=== PATIENT | female | born 1955 | race Caucasian/White ===

== ENCOUNTER → 2016-03-27 | Outpatient (CLI) | payer OTHER ==
[~2016-03-27] MED LIST: ATOR40TA PO; BACT800T5 PO; BUTA1CAP PO; CHOL5000 PO; COZA50TA PO; EMPA1TAB3 PO; EZET10 PO; FIORTAB4 PO; FLOV250A INH; FLUTI220I INH; GLIP10TA6 PO; HYDR-3516 PO; IMIT50TA PO; LEVO500T3 PO; LIPI40TA PO; METR-1 PO; NORC5TAB PO; SUMA50; TRAD5TAB PO; TRAM50TA PO; VENTAER INH; ZETI10TA5 PO; ZYRT10CA PO
--- NOTE | 2016-04-03 09:09 | RSPPFT ---
DATE OF PROCEDURE: 03/27/16 COMMENTS: VOLUMES DYNAMIC: FVC and FEV1 normal. STATIC: VTG, RV and TLC normal. FLOWS: FEV1% and FEF 25-75 normal. DIFFUSION: Normal. FLOW VOLUME LOOP: Normal configuration. IMPRESSION: Normal pulmonary function study.
== END ==
LOC: HRSP 08:35
PROVIDERS: ATTEND Internal Medicine
DX: J45.909 Unspecified asthma, uncomplicated (principal)
CPT/HCPCS: 94060; 94620; 94726; 94729; 95012

== ENCOUNTER 2016-04-21 17:42 | Inpatient (IN) | payer OTHER ==
[~2016-04-21] VITALS: Ht 162.6 cm; Wt 84.2 kg
[~2016-04-21 17:42] MED LIST changes: -BACT800T5 PO; -BUTA1CAP PO; -CHOL5000 PO; -FLUTI220I INH; -HYDR-3516 PO; -IMIT50TA PO; -LEVO500T3 PO; -LIPI40TA PO; -METR-1 PO; -NORC5TAB PO; -TRAD5TAB PO; -TRAM50TA PO; -ZETI10TA5 PO; -ZYRT10CA PO
[2016-04-21 17:54] VITALS: BP 132/87; PULSE 78; RESP 16; TEMP 99.2; O2SAT 98
[2016-04-21] MEDS ORDERED: IMIT50TA PO (18:18)
[2016-04-21] MEDS ORDERED: COZA50TA PO (18:18)
[2016-04-21] MEDS ORDERED: ZETI10TA5 PO (18:18)
[2016-04-21] MEDS ORDERED: FLUTI220I INH (18:18)
[2016-04-21] MEDS ORDERED: BUTA1CAP PO (18:18)
[2016-04-21] MEDS ORDERED: GLIP10TA6 PO (18:18)
[2016-04-21] MEDS ORDERED: LIPI40TA PO (18:18)
[2016-04-21] MEDS ORDERED: EMPA1TAB3 PO (18:18)
[2016-04-21] MEDS ORDERED: VENTAER INH (18:18)
[2016-04-21 19:16] VITALS: BP 158/72; PULSE 87; RESP 18; O2SAT 96
[2016-04-21] MEDS ORDERED: SODIUM CHLOR 0.9% 1000 ML INJ 1,000 ML IV SCH (19:20)
[2016-04-21] MEDS ORDERED: SODIUM CHLORIDE 0.9% FLUSH 5 ML FLUSH IVF PRN (19:30)
--- NOTE | 2016-04-21 19:30 | PD ---
HPI Chief Complaint: Weight Analyst Problem/Complaint Time Seen by Provider: 19:01 Travel History International Travel<30 days: No Contact w/Intl Traveler<30days: No Traveled to known affect area: No History of Present Illness HPI The patient is a 61-year-old female, G2, P1, A1 who complains of bilateral lower abdominal pain/cramping without any nausea or vomiting or diarrhea. She had some slight vaginal bleeding today. She does have a history of colon cancer in the past. She denies any blood in the stool or urine. 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 She had a hysterectomy on 2004 but she is not sure what was taken out. She is not absolutely sure that her cervix was taken out but she is fairly sure that both ovaries were removed. This was not done at this hospital. She denies any fever. She does have a history of diabetes which is [id number]. She states she has had annual Pap smears through her prison guard supervisor since her hysterectomy. She is not sexually active. She denies any vaginal trauma. The patient remembers that 8 days ago she had lower quadrant pain and this never really went away. PFSH Past Medical History Arthritis: Yes Cancer: Yes (COLON CANCER) Cardiovascular Problems: No Diabetes: Yes Patient Takes Glucophage: No Diminished Hearing: No Endocrine: No Gastrointestinal Disorders: Yes (COLON CANCER 2010) Glaucoma: No Genitourinary: No Headaches: Yes Hepatitis: No Hiatal Hernia: No Hypertension: Yes Immune Disorder: No Musculoskeletal: No Neurologic: Yes (MIGRANE HEADACHES) Psychiatric: No Reproductive: No Respiratory: Yes (SLEEP APNEA) Immunizations Current: No Migraines: Yes Thyroid Disease: No Tetanus Vaccination: > 5 Years Influenza Vaccination: Yes ?: Not Menopausal: Yes Past Surgical History Abdominal Surgery: Yes (COLON CANCER) AICD: No Cardiac Surgery: No Ear Surgery: No Endocrine Surgery: No Eye Surgery: No Genitourinary Surgery: No Gynecologic Surgery: Yes (hysterectomy 2004 ) Hysterectomy: Yes Joint Replacement: No Oral Surgery: No Pacemaker: No Thoracic Surgery: No Other Surgery: Yes (3 BREAST BX (2 ON LEFT) (ONE ON RIGHT)) Social History Alcohol Use: No Tobacco Use: No Substance Use: No Allergies-Medications (Allergen,Severity, Reaction): Coded Allergies: Metformin (Verified Allergy, Severe, Diarrhea, 04/21/16) Penicillin (Verified Allergy, Intermediate, SWELLING AND HIVES, 04/21/16) Reported Meds & Prescriptions Reported Meds & Active Scripts Active Reported Cozaar (Losartan Potassium) 50 Mg Tab 50 Mg PO DAILY Imitrex (Sumatriptan Succinate) 50 Mg Tab 50 Mg PO ONCE PRN If a satisfactory response has not been obtained at 2 hours, a second dose may be administered Glipizide 10 Mg Tab 10 Mg PO DAILY Take 30 minutes before a meal Flovent Hfa 12 GM Inh (Fluticasone Propionate) 220 Mcg/Act Inh 1 Puff INH BID Use daily at the same time. Fioricet (Zaffncxyoe-Xlyvglcsincml-Fnusfmbg) 50-300-40 Mg Cap 1 Cap PO Q4H PRN Zetia (Ezetimibe) 10 Mg Tab 10 Mg PO DAILY Jardiance (Empagliflozin) 25 Mg Tab 25 Mg PO DAILY Lipitor (Atorvastatin Calcium) 40 Mg Tab 40 Mg PO HS Ventolin Hfa 18 GM Inh (Albuterol Sulfate) 90 Mcg/Act Aer 1 Puff INH Q6HR PRN Review of Systems Except as stated in HPI: all other systems reviewed are Neg Physical Exam Narrative GENERAL: The patient is alert, oriented 3 and slight apparent distress with her bilateral suprapubic pain. Her vital signs show temperature 99.2 but are otherwise normal. SKIN: Warm and dry. HEAD: Atraumatic. Normocephalic. EYES: Pupils equal and round. No scleral icterus. No injection or drainage. ENT: No nasal bleeding or discharge. Mucous membranes pink and moist. NECK: Trachea midline. No JVD. CARDIOVASCULAR: Regular rate and rhythm. No murmur appreciated. RESPIRATORY: No accessory muscle use. Clear to auscultation. Breath sounds equal bilaterally. GASTROINTESTINAL: Abdomen soft, with tenderness to direct palpation in the bilateral suprapubic area, nondistended. Hepatic and splenic margins not palpable. No guarding or rebound is present. MUSCULOSKELETAL: No obvious deformities. No clubbing. No cyanosis. No edema. NEUROLOGICAL: Awake and alert. No obvious cranial nerve deficits. Motor grossly within normal limits. Normal speech. PSYCHIATRIC: Appropriate mood and affect; insight and judgment normal. GENITOURINARY: Normal external genitalia without lesions or erythema. Vaginal vault with a tiny amount of blood and a slight watery, foul-smelling drainage. The patient is very tender and it is difficult to visualize the vaginal vault all the way in. It is possible that there may be a cervix there. Bimanual exam also is too tender to adequately palpate for cervix. The uterus is absent. There are no adnexal masses present. The wall of the vault is inflamed and a tiny amount of blood comes from the wall of the vagina. No evidence of trauma is seen. Data Data Last Documented VS Vital Signs Date Time Temp Pulse Resp B/P Pulse Ox O2 Delivery O2 Flow Rate FiO2 04/21/16 20:52 73 18 129/66 96 Room Air 04/21/16 17:54 99.2 Orders Complete Blood Count With Diff (04/21/16 19:20) Comprehensive Metabolic Panel (04/21/16 19:20) Lipase (04/21/16 19:20) Urinalysis - C+S If Indicated (04/21/16 19:20) Ct Abd/Pel W Iv Contrast(Rout) (04/21/16 19:20) Iv Access Insert/Monitor (04/21/16 19:20) Ecg Monitoring (04/21/16 19:20) Oximetry (04/21/16 19:20) Sodium Chlor 0.9% 1000 Ml Inj (Ns 1000 M (04/21/16 19:20) Sodium Chloride 0.9% Flush (Ns Flush) (04/21/16 19:30) Urine Culture (04/21/16 19:40) Iohexol 350 Inj (Omnipaque 350 Inj) (04/21/16 21:10) Admit Order (Ed Use Only) (04/21/16 21:46) Labs Laboratory Tests Test 04/21/16 04/21/16 19:40 19:45 Urine Color YELLOW Urine Turbidity CLEAR Urine pH 5.5 Urine Specific [place] 1.008 Urine Protein NEG mg/dL Urine Glucose (UA) 100 mg/dL Urine Ketones NEG mg/dL Urine Occult Blood SMALL Urine Nitrite NEG Urine Bilirubin NEG Urine Leukocyte Esterase MOD Urine RBC 0-3 /hpf Urine WBC 25-49 /hpf Urine Squamous Epithelial 0-5 /hpf Cells Urine Amorphous Sediment SMALL Urine Bacteria FEW /hpf Urine Mucus OCC /lpf Microscopic Urinalysis Comment CULTURE INDICATED White Blood Count 8.5 TH/MM3 Red Blood Count 4.39 MIL/MM3 Hemoglobin 12.7 GM/DL Hematocrit 37.2 % Mean Corpuscular Volume 84.6 FL Mean Corpuscular Hemoglobin 28.9 PG Mean Corpuscular Hemoglobin 34.2 % Concent Red Cell Distribution Width 11.6 % Platelet Count 218 TH/MM3 Mean Platelet Volume 8.7 FL Neutrophils (%) (Auto) 67.8 % Lymphocytes (%) (Auto) 23.5 % Monocytes (%) (Auto) 6.4 % Eosinophils (%) (Auto) 1.4 % Basophils (%) (Auto) 0.9 % Neutrophils # (Auto) 5.8 TH/MM3 Lymphocytes # (Auto) 2.0 TH/MM3 Monocytes # (Auto) 0.5 TH/MM3 Eosinophils # (Auto) 0.1 TH/MM3 Basophils # (Auto) 0.1 TH/MM3 CBC Comment DIFF FINAL Differential Comment Sodium Level 142 MEQ/L Potassium Level 3.5 MEQ/L Chloride Level 104 MEQ/L Carbon Dioxide Level 30.4 MEQ/L Anion Gap 8 MEQ/L Blood Urea Nitrogen 7 MG/DL Creatinine 0.46 MG/DL Estimat Glomerular Filtration 138 ML/MIN Rate Random Glucose 213 MG/DL Calcium Level 8.8 MG/DL Total Bilirubin 0.2 MG/DL Aspartate Amino Transf 19 U/L (AST/SGOT) Alanine Aminotransferase 44 U/L (ALT/SGPT) Alkaline Phosphatase 108 U/L Total Protein 6.9 GM/DL Albumin 2.9 GM/DL Lipase 162 U/L MDM Medical Decision Making Medical Screen Exam Complete: Yes Emergency Medical Condition: Yes Medical Record Reviewed: Yes Interpretation(s) The CT scan shows what appears to be a ruptured appendicitis with infection of the vaginal cuff. The CBC is normal. The complete metabolic profile shows a glucose of 213 and albumin of 2.9 but is otherwise normal. The lipase is normal. The urine shows 100 glucose, small occult blood, moderate leukocyte esterase, 25-49 white cells with few bacteria and culture is indicated. Differential Diagnosis Vaginitis, colitis, appendicitis, vaginal cuff infection, electrolyte disorder, hypo-/hyperglycemia, anemia, extension of colon cancer, renal insufficiency Narrative Course The patient has a ruptured appendix. This apparently caused a vaginal cuff infection. This explains the foul-smelling watery discharge in the patient's vagina. It also explains the exquisite pain the patient had with a pelvic exam. The vaginal bleeding is from the inflamed vaginal cuff which was seen oozing tiny amounts of blood. Plan: The patient will be admitted to Dr. Marcelo, I will put the patient on Flagyl and Cipro IV. Diagnosis Primary Impression: Ruptured appendix Additional Impression: Vaginal cuff cellulitis Admitting Information Admitting Physician Requests: Admit Alex Delong MD Apr 21, 2016 19:30
[2016-04-21 19:46] VITALS: RESP 18; O2SAT 98
[2016-04-21 19:57] LABS: BLOOD, URINE SMALL (NEG); GLUCOSE,URINE 100 mg/dL (NEG); KETONE, URINE NEG (NEG); NITRITE,URINE NEG (NEG); PH, URINE 5.5 (5.0-8.5)
[2016-04-21 19:57] LABS: AUTOMATED NEUTROPHIL # 5.8 TH/MM3 (1.8-7.7); BASOPHIL # 0.1 TH/MM3 (0-0.2); BASOPHIL % 0.9 % (0.0-2.0); EOSINOPHIL # 0.1 TH/MM3 (0-0.4); EOSINOPHIL % 1.4 % (0.0-4.0); HEMATOCRIT 37.2 % (35.0-46.0); HEMO FLAGS DIFF FINAL; LYMPH % 23.5 % (9.0-44.0); MEAN CELL VOLUME 84.6 FL (80.0-100.0); MEAN CORPUSCULAR HEMOGLOBIN 28.9 PG (27.0-34.0); MEAN CORPUSCULAR HGB CONC 34.2 % (32.0-36.0); MONO % 6.4 % (0.0-8.0); NEUT % 67.8 % (16.0-70.0); PLATELET COUNT 218 TH/MM3 (150-450); RED BLOOD COUNT 4.39 MIL/MM3 (4.00-5.30); RED CELL DISTRIBUTION WIDTH 11.6 % (11.6-17.2); WHITE BLOOD COUNT 8.5 TH/MM3 (4.0-11.0)
[2016-04-21 20:16] LABS: CHLORIDE 104 MEQ/L (98-107); POTASSIUM 3.5 MEQ/L (3.5-5.1); SODIUM (NA) 142 MEQ/L (136-145)
[2016-04-21 20:20] LABS: ANION GAP 8 MEQ/L (5-15); BICARBONATE 30.4 MEQ/L (21.0-32.0); BLOOD UREA NITROGEN 7 MG/DL (7-18)
[2016-04-21 20:23] LABS: ALT (GPT) 44 U/L (10-53); AST (GOT) 19 U/L (15-37); GLOMERULAR FILTRATION RATE 138 ML/MIN (>89)
[2016-04-21 20:24] LABS: TOTAL BILIRUBIN ADULT 0.2 MG/DL (0.2-1.0)
[2016-04-21 20:24] LABS: MUCUS URINE OCC /lpf (OCC); URINE COLOR YELLOW (YELLW/STRAW)
[2016-04-21 20:26] LABS: RBC, URINE 0-3 /hpf (0-3); SQUAMOUS EPITHELIAL CELL URINE 0-5 /hpf (0-5)
[2016-04-21 20:26] LABS: ALKALINE PHOSPHATASE 108 U/L (45-117)
[2016-04-21 20:27] LABS: BACTERIA, URINE FEW /hpf; COMMENT (UR) CULTURE INDICATED; CULTURE IF INDICATED CULTURE INDICATED
[2016-04-21 20:52] VITALS: BP 129/66; PULSE 73; RESP 18; O2SAT 96
[2016-04-21] MEDS ORDERED: IOHEXOL 350 MG/ML 10 ML VIAL (for RAD DIAG) IV ONE (21:10)
[2016-04-21 21:57] VITALS: BP 167/86; PULSE 106; RESP 18; O2SAT 99
--- NOTE | 2016-04-21 22:06 | RADHPO ---
EXAM DATE/TIME: 04/21/2016 20:55 [facility] COMPARISON: No previous studies available for comparison. INDICATIONS: Lower abdominal cramping for 1 week, now with vaginal bleeding/discharge. IV CONTRAST: 90 cc Omnipaque 350 (iohexol) IV ORAL CONTRAST: No oral contrast ingested. RADIATION DOSE: 18.94 CTDIvol (mGy) MEDICAL HISTORY: Hypertension. Diabetes, colon cancer SURGICAL HISTORY: Hysterectomy. Colon resection. ENCOUNTER: Initial ACUITY: 1 week PAIN SCALE: 4/10 LOCATION: Bilateral lower quadrant TECHNIQUE: Volumetric scanning of the abdomen and pelvis was performed. Using automated exposure control and ad justment of the mA and/or kV according to patient size, radiation dose was kept as low as reasonably achievable to obtain optimal diagnostic quality images. FINDINGS: The patient has fluid in the upper vagina. The vagina appears thickened superiorly. There is inflam matory change at the vaginal cuff. The patient is status post hysterectomy. The inflammatory change at the vaginal cuff involves the lower pelvis. Some of this inflammatory change extends to the tip of the cecum. It als o appears that the sigmoid colon abuts this region. The sigmoid colon in this region is somewhat thickened. It is not distended. Diverticula are not clearly seen. There is a mildly prominent lymph node seen in the right lower sonia drant posterior to the cecum measuring 0.8 cm. There is a 1.9 cm hypodense mass seen in the posterior segment of the right lobe of the liver likely representing a cyst. The spleen, pancreas, adrenal glands appear normal. The kidneys appear normal. Patient does appear to have a diverticulum at the third portion of the duodenum. There is a bowel anastomosis suture line s een in the proximal descending colon in the left upper quadrant. There is some minimal calcification seen throug hout the arterial structures. The patient does have a midline hernia seen just above the umbilicus contai yovana a small amount of mesenteric fat. The defect at the anterior abdominal wall is 0.9 cm. The lung bases are clear. There is degenerative change in the lumbar spine. CONCLUSION: 1. Inflammatory change throughout the pelvis involving the vaginal cuff and the base of the cecum an d to a lesser degree the distal sigmoid colon. If the patient still has the appendix then one needs to be concerned this may represent appendicitis that has ruptured as in well-formed appendix is not s een. It is thought that ruptured appendicitis involving the vaginal cuff is the most likely etiology for these findings. The inflammatory change does extend over to abut the sigmoid colon but the sigm oid colon appears much less affected than the tip of the cecum. 2. Midline abdominal hernia containing a small amount of mesenteric fat. 3. Suspected cyst in the right lobe of the liver. 4. Status post colon resection at the proximal descending colon. El Rosales MD on April 21, 2016 at 21:37 Board Certified Radiologist. This report was verified electronically.
[2016-04-21] MEDS ORDERED: CIPROFLOXACIN 400 MG PREMIX 200 ML IV ONE (22:15)
[2016-04-21] MEDS ORDERED: metroNIDAZOLE 500 MG INJ 100 ML IV ONE (22:15)
[2016-04-21 22:58] VITALS: BP 163/82; PULSE 92; RESP 18; O2SAT 97
[2016-04-22] VITALS (8 sets, daily range): BP systolic 122–149; BP diastolic 57–87; PULSE 66–102; RESP 16–20; TEMP 96.5–98.1; O2SAT 94–98
[2016-04-22] MEDS ORDERED: SODIUM CHLOR 0.9% 1000 ML INJ 1,000 ML IV SCH (03:48)
[2016-04-22] MEDS ORDERED: SODIUM CHLORIDE 0.9% FLUSH 5 ML FLUSH IV FLUSH PRN (04:00)
[2016-04-22] MEDS ORDERED: oxyCODONE/ACETAMINOPHEN 5 MG/325 MG TAB PO PRN (04:00)
[2016-04-22] MEDS ORDERED: MORPHINE SULFATE 4 MG/ML INJ IV PRN (04:00)
[2016-04-22 06:47] LABS: AUTOMATED NEUTROPHIL # 3.8 TH/MM3 (1.8-7.7); BASOPHIL # 0.1 TH/MM3 (0-0.2); BASOPHIL % 0.9 % (0.0-2.0); EOSINOPHIL # 0.1 TH/MM3 (0-0.4); EOSINOPHIL % 2.2 % (0.0-4.0); HEMATOCRIT 33.6 % (35.0-46.0); HEMO FLAGS DIFF FINAL; LYMPH % 29.4 % (9.0-44.0); LYMPHOCYTE # 1.9 TH/MM3 (1.0-4.8); MEAN CELL VOLUME 82.7 FL (80.0-100.0); MEAN CORPUSCULAR HEMOGLOBIN 28.3 PG (27.0-34.0); MEAN CORPUSCULAR HGB CONC 34.2 % (32.0-36.0); MONO % 7.5 % (0.0-8.0); PLATELET COUNT 231 TH/MM3 (150-450); RED BLOOD COUNT 4.07 MIL/MM3 (4.00-5.30); RED CELL DISTRIBUTION WIDTH 12.5 % (11.6-17.2); WHITE BLOOD COUNT 6.4 TH/MM3 (4.0-11.0)
[2016-04-22 07:07] LABS: POTASSIUM 3.3 MEQ/L (3.5-5.1)
--- NOTE | 2016-04-22 09:13 | PD.CONS ---
HPI Service [facility] Consult Requested By Ana Reason for Consult medical management Primary Care Physician Liu Morris MD Diagnoses: History of Present Illness patient is a 61 y/o female with history of hypertension, diabetes, dyslipidemia , colon cancer , asthma presented to ER with vaginal bleeding. she says that she had some flu symptoms with headache and lower abdominal pain last week. she had some vaginal bleeding yesterday which made her to come to ER. she's complaining of lower abdominal pain. she had some nausea yesterday but no emesis. she denies fever, chills or urinary complaints. the last BM was two days ago. Review of Systems Constitutional: DENIES: Fever, Weight loss, Chills, Night Sweats Eyes: DENIES: Blurred vision, Diplopia, Vision loss, Double Vision Ears, nose, mouth, throat: DENIES: Tinnitus, Vertigo, Throat pain, Epistaxis Respiratory: DENIES: Apneas, Cough, Snoring, Wheezing, Hemoptysis, Sputum production, Shortness of breath Cardiovascular: DENIES: Chest pain, Palpitations, Syncope, Dyspnea on Exertion , PND, Lower Extremity Edema, Orthopnea, Claudication Gastrointestinal: COMPLAINS OF: Abdominal pain, Constipation, Nausea, DENIES: Black stools, Bloody stools, Diarrhea, Vomiting, Difficulty Swallowing, Anorexia Genitourinary: COMPLAINS OF: Abnormal vaginal bleeding, DENIES: Urinary frequency, Urgency, Hematuria, Dysuria Musculoskeletal: DENIES: Joint pain, Muscle aches, Stiffness, Joint Swelling Integumentary: DENIES: Rash Neurologic: DENIES: Abnormal gait, Headache, Localized weakness, Paresthesias, Seizures, Speech Problems, Tremor, Poor Balance Psychiatric: DENIES: Anxiety, Confusion, Mood changes, Depression, Hallucinations, Agitation, Suicidal Ideation, Homicidal Ideation, Delusions Past Family Social History Allergies: Coded Allergies: Metformin (Verified Allergy, Severe, Diarrhea, 04/21/16) Penicillin (Verified Allergy, Intermediate, SWELLING AND HIVES, 04/21/16) Past Medical History hypertension diabetes mellitus dyslipidemia colon cancer asthma Past Surgical History hemicolectomy hysterectomy breast biopsy Reported Medications Cozaar (Losartan Potassium) 50 Mg Tab 50 Mg PO DAILY Imitrex (Sumatriptan Succinate) 50 Mg Tab 50 Mg PO ONCE PRN If a satisfactory response has not been obtained at 2 hours, a second dose may be administered Glipizide 10 Mg Tab 10 Mg PO DAILY Take 30 minutes before a meal Flovent Hfa 12 GM Inh (Fluticasone Propionate) 220 Mcg/Act Inh 1 Puff INH BID Use daily at the same time. Fioricet (Kbkfcswjbi-Jgpaxpqhrvvum-Attqailn) 50-300-40 Mg Cap 1 Cap PO Q4H PRN Zetia (Ezetimibe) 10 Mg Tab 10 Mg PO DAILY Jardiance (Empagliflozin) 25 Mg Tab 25 Mg PO DAILY Lipitor (Atorvastatin Calcium) 40 Mg Tab 40 Mg PO HS Ventolin Hfa 18 GM Inh (Albuterol Sulfate) 90 Mcg/Act Aer 1 Puff INH Q6HR PRN Active Ordered Medications Current Medications Sodium Chloride (NS 1000 ml Inj) 1,000 ml @ 1,000 mls/hr Q1H IV Last administered on 04/21/16 19:58; Start 04/21/16 at 19:20; Stop 04/21/16 at 20:19 ; Status DC IV Flush (NS Flush) 2 ml UNSCH PRN IVF FLUSH AFTER USING IV ACCESS Last administered on 04/21/16 19:59; Start 04/21/16 at 19:30; Stop 04/22/16 at 03:57 ; Status DC Iohexol 90 ml 90 ml STK-MED ONCE IV Last administered on 04/21/16 21:10; Start 04/21/16 at 21:10; Stop 04/21/16 at 21:11; Status DC Metronidazole 100 ml @ 100 mls/hr ONCE ONCE IV Last administered on 23:09; Start 04/21/16 at 22:15; Stop 04/21/16 at 23:14; Status DC Ciprofloxacin/ Dextrose 200 ml @ 200 mls/hr ONCE ONCE IV Last administered on 04/21/16 22:10; Start 04/21/16 at 22:15; Stop 04/21/16 at 23:14; Status DC Sodium Chloride (NS 1000 ml Inj) 1,000 ml @ 125 mls/hr Q8H IV Last administered on 04/22/16 04:36; Start 04/22/16 at 03:48 IV Flush (NS Flush) 2 ml BID IV FLUSH ; Start 04/22/16 at 09:00 IV Flush 2 ml 2 ml UNSCH PRN IV FLUSH FLUSH AFTER USING IV ACCESS; Start at 04:00 Metronidazole 100 ml @ 100 mls/hr Q8H IV ; Start 04/22/16 at 08:00 Levofloxacin/ Dextrose (Levaquin 500 Mg Premix Inj) 100 ml @ 100 mls/hr Q24H IV ; Start 04/22/16 at 09:00 Pantoprazole Sodium (Protonix Inj) 40 mg DAILY IV ; Start 04/22/16 at 09:00 Oxycodone/ Acetaminophen (Percocet 5-325 Mg) 1 tab Q4H PRN PO PAIN SCALE 1 TO 5; Start 04/22/16 at 04:00 Morphine Sulfate (Morphine Inj) 3 mg Q4H PRN IV Pain 6-10;if unable to take PO ; Start 04/22/16 at 04:00 Family History parkinson's disease in father. Social History no smoking or drinking. Physical Exam Vital Signs Vital Signs Date Time Temp Pulse Resp B/P Pulse Ox O2 Delivery O2 Flow Rate FiO2 04/22/16 08:00 97.3 69 17 122/62 96 04/22/16 04:00 97.4 69 16 122/57 96 04/22/16 02:18 97.4 102 20 149/87 94 04/22/16 01:43 89 18 133/69 97 04/22/16 00:23 79 18 04/22/16 00:23 79 18 146/73 97 Room Air 04/21/16 22:58 92 18 163/82 97 Room Air 04/21/16 21:57 106 18 04/21/16 21:57 106 18 167/86 99 Room Air 04/21/16 20:52 73 18 129/66 96 Room Air 04/21/16 19:46 18 98 Room Air 04/21/16 19:16 87 18 158/72 96 Room Air 04/21/16 19:16 87 18 04/21/16 17:54 99.2 78 16 132/87 98 Physical Exam GENERAL: This is a well-nourished, well-developed patient, in no apparent distress. SKIN: No rashes, ecchymoses or lesions. Cool and dry. HEAD: Atraumatic. Normocephalic. No temporal or scalp tenderness. EYES: Pupils equal round and reactive. Extraocular motions intact. No scleral icterus. No injection or drainage. ENT: Nose without bleeding, purulent drainage or septal hematoma. Throat without erythema, tonsillar hypertrophy or exudate. Uvula midline. Airway patent. NECK: Trachea midline. No JVD or lymphadenopathy. Supple, nontender, no meningeal signs. CARDIOVASCULAR: Regular rate and rhythm without murmurs, gallops, or rubs. RESPIRATORY: Clear to auscultation. Breath sounds equal bilaterally. No wheezes , rales, or rhonchi. GASTROINTESTINAL: Abdomen soft, mild lower abdominal tenderness, nondistended. No hepato-splenomegaly, or palpable masses. No guarding. MUSCULOSKELETAL: Extremities without clubbing, cyanosis, or edema. No joint tenderness, effusion, or edema noted. No calf tenderness. Negative Homans sign bilaterally. NEUROLOGICAL: Awake and alert. Cranial nerves II through XII intact. Motor and sensory grossly within normal limits. Five out of 5 muscle strength in all muscle groups. Normal speech. Laboratory Laboratory Tests Test 04/21/16 04/21/16 04/22/16 19:40 19:45 05:47 Urine Color YELLOW Urine Turbidity CLEAR Urine pH 5.5 Urine Specific [place] 1.008 Urine Protein NEG Urine Glucose (UA) 100 Urine Ketones NEG Urine Occult Blood SMALL Urine Nitrite NEG Urine Bilirubin NEG Urine Leukocyte Esterase MOD Urine RBC 0-3 Urine WBC 25-49 Urine Squamous Epithelial 0-5 Cells Urine Amorphous Sediment SMALL Urine Bacteria FEW Urine Mucus OCC Microscopic Urinalysis Comment CULTURE INDICATED White Blood Count 8.5 6.4 Red Blood Count 4.39 4.07 Hemoglobin 12.7 11.5 Hematocrit 37.2 33.6 Mean Corpuscular Volume 84.6 82.7 Mean Corpuscular Hemoglobin 28.9 28.3 Mean Corpuscular Hemoglobin 34.2 34.2 Concent Red Cell Distribution Width 11.6 12.5 Platelet Count 218 231 Mean Platelet Volume 8.7 8.3 Neutrophils (%) (Auto) 67.8 60.0 Lymphocytes (%) (Auto) 23.5 29.4 Monocytes (%) (Auto) 6.4 7.5 Eosinophils (%) (Auto) 1.4 2.2 Basophils (%) (Auto) 0.9 0.9 Neutrophils # (Auto) 5.8 3.8 Lymphocytes # (Auto) 2.0 1.9 Monocytes # (Auto) 0.5 0.5 Eosinophils # (Auto) 0.1 0.1 Basophils # (Auto) 0.1 0.1 CBC Comment DIFF FINAL DIFF FINAL Differential Comment Sodium Level 142 140 Potassium Level 3.5 3.3 Chloride Level 104 103 Carbon Dioxide Level 30.4 29.0 Anion Gap 8 8 Blood Urea Nitrogen 7 5 Creatinine 0.46 0.40 Estimat Glomerular Filtration 138 162 Rate Random Glucose 213 241 Calcium Level 8.8 8.4 Total Bilirubin 0.2 Aspartate Amino Transf 19 (AST/SGOT) Alanine Aminotransferase 44 (ALT/SGPT) Alkaline Phosphatase 108 Total Protein 6.9 Albumin 2.9 Lipase 162 Date/Time Procedure Status Source Growth 04/21/16 19:40 Urine Culture Received Urine Clean Catch Pending Result Diagram: 04/22/16 0547 04/22/1647 Imaging Last Impressions Abdomen/Pelvis CT 04/21/161919 Signed Impressions: Service Date/Time: Thursday, April 21, 2016 20:55 - CONCLUSION: 1. Inflammatory change throughout the pelvis involving the vaginal cuff and the base of the cecum and to a lesser degree the distal sigmoid colon. If the patient still has the appendix then one needs to be concerned this may represent appendicitis that has ruptured as in well-formed appendix is not seen. It is thought that ruptured appendicitis involving the vaginal cuff is the most likely etiology for these findings. The inflammatory change does extend over to abut the sigmoid colon but the sigmoid colon appears much less affected than the tip of the cecum. 2. Midline abdominal hernia containing a small amount of mesenteric fat. 3. Suspected cyst in the right lobe of the liver. 4. Status post colon resection at the proximal descending colon. El Rosales MD Assessment and Plan Assessment and Plan A/P - possible ruptured appendicitis NPO for now- continue IV fluid and Antibiotics- pain control- surgery managing. -hypertension; hold home meds- vasotec prn -diabetes mellitus; start accu-check with SSI- hold home meds for now -asthma; resume home inhalers -hypokalemia; will replace -DVT prophylaxis with SCD's thank you for the consult. Discussed Condition With the patient. Biju De León MD Apr 22, 2016 09:13
[2016-04-22] MEDS ORDERED: ALBUTEROL SULFATE 90 MCG/ACT HFA 8 GM INHALER INH PRN (09:15)
[2016-04-22] MEDS ORDERED: GLUCAGON 1 MG/ML VIAL OTHER PRN (09:15)
[2016-04-22] MEDS ORDERED: DEXTROSE 50% IN WATER 50 ML VIAL(D50) IV PUSH PRN (09:15)
[2016-04-22] MEDS ORDERED: ENALAPRILAT 1.25 MG/ML VIAL IV PUSH PRN (09:15)
[2016-04-22] MEDS: INSULIN ASPART SUPPLEMENTAL SCALE SQ SCH ×3 (11:00→19:21)
[2016-04-22] MEDS: LEVOFLOXACIN 500 MG PREMIX INJ 100 ML IV SCH ×2 (11:02→16:22)
[2016-04-22] MEDS: metroNIDAZOLE 500 MG INJ 100 ML IV SCH ×2 (11:02→16:00)
--- NOTE | 2016-04-22 11:59 | MH ---
cc: ANNY SOLIS MD DATE OF ADMISSION: 04/21/2016 CHIEF COMPLAINT Vaginal spotting, perforated appendicitis. HISTORY OF PRESENT ILLNESS The patient is a 61-year-old female who has a history of a hysterectomy in 2004 and an approximately 8-9 day history of mild flu-like symptoms and abdominal pain. She anticipated the symptoms would get better but noted some vaginal spotting and cramping and came to the emergency department for further evaluation. CT scan evaluation showed concern for ruptured appendicitis with small fluid in the lower mid pelvis and very close to the vaginal cuff. The patient does have pain that is currently 3-4/10 and was up to 7/10, improved somewhat with IV pain medications. She states the pain is worse with deep palpation and better when lying still. She denies any associated nausea or vomiting. She did state the pain was mild in the right lower quadrant and now is more central pelvis. She never had any significant pain like this before. PAST MEDICAL HISTORY 1. Asthma. 2. Colon cancer. 3. Diabetes. 4. Dyslipidemia. 5. Hypertension. PAST SURGICAL HISTORY 1. Left hemicolectomy. 2. Hysterectomy. 3. Breast biopsies. MEDICATIONS See EMR. ALLERGIES 1. METFORMIN. 2. PENICILLIN. FAMILY HISTORY Dad with Parkinson's and hypertension. Mom with CAD. SOCIAL HISTORY The patient denies smoking, ETOH or IVDA. REVIEW OF SYSTEMS GENERAL: The patient denies significant fevers. Complains of headache. HEENT: Denies eye pain or ear pain. NECK: Denies swelling or masses. RESPIRATORY: Denies cough or recent wheeze. CARDIOVASCULAR: Denies palpitations or chest pain. GASTROINTESTINAL: Complains of abdominal pain. Denies nausea, vomiting. Complains of some constipation. GENITOURINARY: Complains of vaginal spotting and purulent drainage. Denies dysuria. MUSCULOSKELETAL: Denies edema or cyanosis. NEUROLOGIC: Denies altered mental status or numbness. PSYCHIATRIC: Denies change in mood or judgment. ENDOCRINE: Denies polyuria or polydipsia. PHYSICAL EXAMINATION GENERAL: The patient is in no acute distress, well-developed. VITAL SIGNS: Temperature 97.4, pulse 102, respirations 20, blood pressure 149/87, 94% on room air. HEENT: Pupils equal and reactive. Moist mucous membranes. NECK: Supple. Trachea midline. HEART: S1, S2. No murmur. LUNGS: Bilateral expansion. Clear. ABDOMEN: Soft, obese. Well-healed transverse surgical incision. Mild tenderness to palpation over the pelvic area. No rebound or guarding. EXTREMITIES: Well-perfused, warm. BACK: Nontender. No step-offs. NEUROLOGIC: GCS of 15. 5/5 motor all extremities. LABORATORY/DIAGNOSTIC DATA Sodium 142, potassium 3.5, chloride 104, BUN 7, creatinine 0.46, calcium 8.8, total bilirubin 0.2, AST 19, ALT 44, alk phos 108, lipase 162. UA yellow, clear, nitrite negative, leukocyte esterase moderate. CT reviewed by myself and with radiology showing inflammatory change throughout the pelvis involving the vaginal cuff, base of cecum distal sigmoid. Appendix is therefore ruptured, small amount of appendiceal fluid near the vaginal cuff. Inflammatory changes. Small abdominal hernia. ASSESSMENT The patient is a 61-year-old female with ruptured appendix, deep pelvis, draining through vaginal cuff. PLAN After full clinical and laboratory/diagnostic workup, patient with the above-named issues including perforated appendicitis. At this point discussed with the patient currently we will do nonoperative management, abdominal exams, IV antibiotics, and continue to observe. The patient's abscess is not going to be amenable to IR and also appears to be draining on its own through the vaginal cuff. We will continue to monitor and watch this. We will consult OB-SUPERVISOR IN[employer] PROCESSING for any further recommendations regarding this issue. Further the patient does have history of distant colon cancer status post resection, so at this point we will check some tumor markers just to rule this concern out. The patient will likely benefit from continued evaluation and laboratory studies. We will also likely get a repeat CT scan in several days to assess the diameter of the abscess. This was discussed in detail with the patient at bedside. She stated understanding and agreed and would like to proceed with the current management. MD NADEEM Betancourt/AKI /11:10 AM /11:38 AM
[2016-04-22] MEDS: PANTOPRAZOLE SODIUM 40 MG VIAL IV SCH (16:21)
[2016-04-22] MEDS: NS + KCL 20 MEQ INJ 1,000 ML IV SCH (16:22)
[2016-04-22] MEDS: SODIUM CHLORIDE 0.9% FLUSH 5 ML FLUSH IV FLUSH SCH (19:18)
[2016-04-22] MEDS: FLUTICASONE PROPIONATE 220 MCG/ACT 12 GM INHALER INH SCH (19:19)
[2016-04-23] VITALS: BP 107/59; PULSE 66; RESP 18; TEMP 97.4; O2SAT 96
[2016-04-23] MEDS: NS + KCL 20 MEQ INJ 1,000 ML IV SCH ×5 (00:59→23:21)
[2016-04-23] MEDS: metroNIDAZOLE 500 MG INJ 100 ML IV SCH ×4 (00:59→23:17)
[2016-04-23] MEDS ORDERED: POTASSIUM CHLORIDE INJ 20 MEQ in SODIUM CHLOR 0.9% 1000 ML INJ 1,000 ML IV SCH (03:48)
[2016-04-23] MEDS: INSULIN ASPART SUPPLEMENTAL SCALE SQ SCH ×4 (05:01→21:47)
[2016-04-23 08:00] VITALS: BP 118/58; PULSE 61; RESP 17; TEMP 98.4; O2SAT 95
[2016-04-23] MEDS: PANTOPRAZOLE SODIUM 40 MG VIAL IV SCH (08:15)
[2016-04-23] MEDS: FLUTICASONE PROPIONATE 220 MCG/ACT 12 GM INHALER INH SCH ×2 (08:16→21:42)
[2016-04-23] MEDS: SODIUM CHLORIDE 0.9% FLUSH 5 ML FLUSH IV FLUSH SCH ×2 (08:17→21:00)
--- NOTE | 2016-04-23 09:18 | PD.CONS ---
HPI Travel History International Travel<30 Days: No Contact w/Intl Traveler<30Days: No Known Affected Area: No History of Present Illness HPI CLERICAL PROOFREADER consult requested secondary to vaginal discharge; This patient is a 61-year-old 2 para 1011 she is status post ELO/BSO at the age of 47 for uterine fibroids. Patient is presently admitted with presumed ruptured appendix she states that on she began having discharge with a slimy bloody discharge and some crampy lower abdominal pain she was seen in the [facility] emergency room where she was evaluated and an abdominal CAT scan was done. The conclusion were inflammatory change throughout the pelvis involving the vaginal cuff and the base of the cecum and to a lesser degree the distal sigmoid colon. If the patient still hasn't appendix when needs to be concerned this may represent appendicitis with his ruptured as and well-formed appendix is not seen is thought that ruptured appendicitis involving the vaginal cuff is a most likely etiology for these findings inflammatory change does not extend over to about the sigmoid colon but the sigmoid colon appears much less affected than the tip of the cecum. At this point the patient was sent to [facility] for further evaluation. Patient was admitted and placed on IV fluids and antibiotic Dr. Marcelo Gen. surgery was consulted. Spoke with Dr. Marcelo who wants to limit the inflammatory changes resolved with IV fluids antibiotics over the next 4-6 weeks as the patient has no acute abdomen and it appears as if the appendix has walled itself off. The patient reports having a greenish discharge serosanguineous-type fluid she states that when she had a bowel movement she wiped and she saw stool front and back History Past Medical History Narrative Medical Patient is allergic to penicillin and metformin She has hypertension and elevated cholesterol she is a diabetic History of colon cancer and has had a colectomy Obstetric History Obstetric History 1983 vaginal delivery baby weighed 9 lbs. 10 oz. she states that she did have a vaginal tear but does not know if it was a third or fourth degree VIP 1 Past Surgical History Narrative Surgical Surgery includes ELO/BSO And a left colectomy Family History Narrative Family History Father has Parkinson's and hypertension Mother has heart disease both in their 90s Social History Alcohol Use: No Tobacco Use: No Substance Abuse: No Allergies-Medications (Allergen,Severity, Reaction): Coded Allergies: Metformin (Verified Allergy, Severe, Diarrhea, 04/21/16) Penicillin (Verified Allergy, Intermediate, SWELLING AND HIVES, 04/21/16) Home Meds Reported Medications Losartan (Cozaar)50 Mg Tab50 Mg PO DAILY #30 TAB Ref 0 04/21/16 Sumatriptan (Imitrex)50 Mg Tab50 Mg PO ONCE PRN (MIGRAINE HEADACHE) Ref 0 If a satisfactory response has not been obtained at 2 hours, a second dose may be administered 04/21/16 Glipizide 10 Mg Tab10 Mg PO DAILY #30 TAB Ref 0 Take 30 minutes before a meal 04/21/16 Fluticasone 12 GM Inh (Flovent Hfa 12 GM Inh)220 Mcg/Act Inh1 Puff INH BID #1 INHALER Ref 0 Use daily at the same time. 04/21/16 Nmxiiirgmp-Qqhqrsrtibqbn-Qqjuqobu (Fioricet)50-300-40 Mg Cap1 Cap PO Q4H PRN ( HEADACHE) Ref 0 04/21/16 Ezetimibe (Zetia)10 Mg Tab10 Mg PO DAILY #30 TAB Ref 0 04/21/16 Empagliflozin (Jardiance)25 Mg Tab25 Mg PO DAILY #30 TAB Ref 0 04/21/16 Atorvastatin (Lipitor)40 Mg Tab40 Mg PO HS #30 TAB Ref 0 04/21/16 Albuterol 18 GM Inh (Ventolin Hfa 18 GM Inh)90 Mcg/Act Aer1 Puff INH Q6HR PRN ( SHORTNESS OF BREATH) #1 INHALER Ref 0 04/21/16 Review of Systems General / Constitutional: No: Fever, Weight Gain, Weight Loss, Chills, Other Eyes: No: Diploplia, Blurred Vision, Visual changes, Pain, Photophobia, Other HENT: No: Headaches, Vertigo, Dental Difficulties, Lightheadedness, Other Cardiovascular: No: Irregular Rhythm, Chest Pain or Discomfort, Palpitations, Tachycardia, Syncope, Varicosities, Edema, Cyanosis, Other Respiratory: No: Cough, Short of Breath, Wheezing, Other Gastrointestinal: Abdominal Pain (crampy lower abdominal pain) Genitourinary: Other (greenish discharge slightly bloody) Musculoskeletal: No: Limited ROM, Weakness, Cramping, Edema, Pain, Other Neurologic: No: Weakness, Dizziness, Syncope, Focal Abnormalities, Coordination Problem, Headache, Slurred Speech, Seizures, Other Physical Exam Narrative GENERAL: Well-nourished, well-developed patient. Patient is alert oriented 3 and cooperative in no acute distress ABDOMEN/GI: Abdomen soft, bowel sounds present, no rebound, no guarding mild tenderness in the suprapubic area but no rebound tenderness no masses palpate GENITOURINARY: External Genitalia: intact and normal in appearance and atrophic speculum exam is done upon placing the speculum there is a watery discharge and a small piece of brown stool seen at the vaginal cuff Bimanual exam is done and to the left of the patient it appears to be a slight defect no palpable masses Data Data Vital Signs Reviewed: Yes (temperature is 98.4 blood pressures 118/58 pulse is 61 respiration is 17) Orders Enalaprilat Inj (Vasotec Inj) (04/22/16 09:15) Ns + Kcl 20 Meq Inj (Ns + Kcl 20 Meq Inj (04/22/16 09:30) Consult Vascular Access Team (04/22/16 ) Consult Gynecology (04/22/16 ) Vascular Poc Ultrasound (04/22/16 ) Carcinoembryonic Antigen (Cea) (04/22/16 10:25) Ca 19-9 (04/22/16 10:25) (Hub Use Only)Inp Phy Cons/Ref (04/22/16 ) Diet Clear Liquid (04/22/16 Breakfast) Labs Hemoglobin is 11.5 hematocrit 33.6 white count is 6.4 Laboratory Tests Test 04/22/16 11:36 Carcinoembryonic Antigen 2.6 CA 19-9 Antigen 212.5 Date/Time Procedure Status Source Growth 04/21/16 19:40 Urine Culture - Preliminary Resulted Urine Clean Catch NO GROWTH IN 24 HOURS. [facility] Medical Record Reviewed: Yes Interpretation(s) 61-year-old menopausal female status post ELO/BSO at the age of 47 for fibroid uterus Presumed ruptured appendix that his walled off Based on the physical examination a fistula at the top of the vaginal cuff most likely involving the appendix and the vaginal cuff History of colon cancer with a left colectomy Hypertension Elevated cholesterol Diabetes Plan As per general surgery who wants to wait until the inflammatory changes resolved over the next 4-6 weeks, this patient has an appointment with Dr. Garay on April 30, 2016 If patient is discharged she is to keep that appointment on April [address] Carbiener and I have spoken with Dr. Go and given her the patient's name and date of to expect her visit on 30 April. Possible collaborative surgery with general surgery and CLERICAL PROOFREADER for the repair of the fistula and removal of the appendix. Vaginal culture done Wet prep done Both are pending Patient is requesting to be seen by her colorectal --Dr. Felicia Batista we' ll submit a consult Admitting diagnosis: ruptured appendicitis Jesica Swenson MD Apr 23, 2016 09:18
--- NOTE | 2016-04-23 09:56 | HHI.PR ---
Subjective Remarks in no acute distress. mild abdominal cramps. no nausea or vomiting. afebrile. Objective Vitals Vital Signs Date Time Temp Pulse Resp B/P Pulse Ox O2 Delivery O2 Flow Rate FiO2 04/23/16 08:00 98.4 61 17 118/58 95 04/23/16 00:00 97.4 66 18 107/59 96 04/22/16 20:00 97.6 70 16 135/64 98 04/22/16 16:00 98.1 69 17 125/61 97 04/22/16 12:00 96.5 66 17 138/66 96 I/O 04/22/16 04/22/16 04/22/16 04/23/16 04/23/16 04/23/16 07:00 15:00 23:00 07:00 15:00 23:00 Intake Total 434 ml 200 ml 706 ml 1401 ml Output Total 1000 ml Balance 434 ml 200 ml -294 ml 1401 ml Intake Oral 200 ml 180 ml 240 ml IV Total 434 ml 526 ml 1161 ml Output Urine Total 1000 ml # Voids 3 2 2 # Bowel Movements 0 0 1 0 # Sanitary Pads 1 Pads 1 Pads Result Diagram: 04/22/16 0547 04/22/16 0547 Imaging Last Impressions Abdomen/Pelvis CT 04/21/16 192 Signed Impressions: Service Date/Time: Thursday, April 21, 2016 20:55 - CONCLUSION: 1. Inflammatory change throughout the pelvis involving the vaginal cuff and the base of the cecum and to a lesser degree the distal sigmoid colon. If the patient still has the appendix then one needs to be concerned this may represent appendicitis that has ruptured as in well-formed appendix is not seen. It is thought that ruptured appendicitis involving the vaginal cuff is the most likely etiology for these findings. The inflammatory change does extend over to abut the sigmoid colon but the sigmoid colon appears much less affected than the tip of the cecum. 2. Midline abdominal hernia containing a small amount of mesenteric fat. 3. Suspected cyst in the right lobe of the liver. 4. Status post colon resection at the proximal descending colon. El Rosales MD Objective Remarks GENERAL: This is a well-nourished, well-developed patient, in no apparent distress. CARDIOVASCULAR: Regular rate and regular rhythm without murmurs, gallops, or rubs. RESPIRATORY: Clear to auscultation. Breath sounds equal bilaterally. No wheezes , rales, or rhonchi. GASTROINTESTINAL: Abdomen soft, non-tender, nondistended. Normal, active bowel sounds MUSCULOSKELETAL: Extremities without clubbing, cyanosis, or edema. NEURO: Alert & Oriented x4 to person, place, time, situation. Moves all ext x4 Procedures none Medications and IVs Current Medications Sodium Chloride (NS 1000 ml Inj) 1,000 ml @ 1,000 mls/hr Q1H IV Last administered on 04/21/16 19:58; Start 04/21/16 at 19:20; Stop 04/21/16 at 20:19 ; Status DC IV Flush (NS Flush) 2 ml UNSCH PRN IVF FLUSH AFTER USING IV ACCESS Last administered on 04/21/16 19:59; Start 04/21/16 at 19:30; Stop 04/22/16 at 03:57 ; Status DC Iohexol 90 ml 90 ml STK-MED ONCE IV Last administered on 04/21/16 21:10; Start 04/21/16 at 21:10; Stop 04/21/16 at 21:11; Status DC Metronidazole 100 ml @ 100 mls/hr ONCE ONCE IV Last administered on 23:09; Start 04/21/16 at 22:15; Stop 04/21/16 at 23:14; Status DC Ciprofloxacin/ Dextrose 200 ml @ 200 mls/hr ONCE ONCE IV Last administered on 04/21/16 22:10; Start 04/21/16 at 22:15; Stop 04/21/16 at 23:14; Status DC Sodium Chloride (NS 1000 ml Inj) 1,000 ml @ 125 mls/hr Q8H IV Last administered on 04/22/16 04:36; Start 04/22/16 at 03:48; Stop 04/22/16 at 09:09; Status DC IV Flush (NS Flush) 2 ml BID IV FLUSH Last administered on 04/23/16 08:17; Start 04/22/16 at 09:00 IV Flush 2 ml 2 ml UNSCH PRN IV FLUSH FLUSH AFTER USING IV ACCESS; Start at 04:00 Metronidazole 100 ml @ 100 mls/hr Q8H IV Last administered on 04/23/16 08:17; Start 04/22/16 at 08:00 Levofloxacin/ Dextrose (Levaquin 500 Mg Premix Inj) 100 ml @ 100 mls/hr Q24H IV Last administered on 04/22/16 16:22; Start 04/22/16 at 09:00 Pantoprazole Sodium (Protonix Inj) 40 mg DAILY IV Last administered on 08:15; Start 04/22/16 at 09:00 Oxycodone/ Acetaminophen (Percocet 5-325 Mg) 1 tab Q4H PRN PO PAIN SCALE 1 TO 5 Last administered on 04/22/16 09:37; Start 04/22/16 at 04:00 Morphine Sulfate (Morphine Inj) 3 mg Q4H PRN IV Pain 6-10;if unable to take PO ; Start 04/22/16 at 04:00 Albuterol Sulfate (Proair Hfa Inh) 1 puff Q6HR PRN INH SHORTNESS OF BREATH; Start 04/22/16 at 09:15 Fluticasone Propionate 1 puff 1 puff BID INH Last administered on 04/23/16 08: 16; Start 04/22/16 at 21:00 Potassium Chloride/Sodium Chloride (KCl Inj/NS 1000 ml Inj) 1,010 ml @ 125 mls/ hr Q8H5M IV ; Start 04/23/16 at 03:48; Stop 04/23/16 at 03:48; Status DC Dextrose (D50w (Vial) Inj) 25 ml UNSCH PRN IV PUSH HYPOGLYCEMIA-SEE COMMENTS; Start 04/22/16 at 09:15 Glucagon (Glucagon Inj) 1 mg UNSCH PRN OTHER HYPOGLYCEMIA-SEE COMMENTS; Start 04/22/16 at 09:15 Insulin Aspart (NovoLOG SUPPLEMENTAL SCALE) 1 ACHS SLIDING SCALE SQ Last administered on 04/23/16 05:01; Start 04/22/16 at 11:00 Enalaprilat 1.25 mg 1.25 mg Q8H PRN IV PUSH SBP> OR = 180, DBP> OR = 100; Start 04/22/16 at 09:15 Potassium Chloride/Sodium Chloride (NS + KCl 20 Meq Inj) 1,000 ml @ 125 mls/hr Q8H IV Last administered on 04/23/16 08:17; Start 04/22/16 at 09:30 A/P Assessment and Plan - ruptured appendicitis on liquid diet- continue Antibiotics- pain control- surgery managing. STANDARDS ANALYST consulted. -hypertension; hold home meds for now- vasotec prn -diabetes mellitus; accu-check with SSI- hold home meds for now -asthma; resumed home inhalers -hypokalemia; replaced -DVT prophylaxis with SCD's Biju De León MD Apr 23, 2016 09:55
[2016-04-23 12:00] VITALS: BP 140/67; PULSE 67; RESP 17; TEMP 98.1; O2SAT 96
--- NOTE | 2016-04-23 13:16 | HHI.PR ---
Subjective Subjective Notes fells better, no fevers, normal wbc, tolerating liquids Objective Vitals/I&O Vital Signs Date Time Temp Pulse Resp B/P Pulse Ox O2 Delivery O2 Flow Rate FiO2 04/23/16 12:00 98.1 67 17 140/67 96 04/22/16 00:23 Room Air Labs Laboratory Tests Test 04/23/16 08:00 Clue Cells (Wet Prep) NONE SEEN Vaginal Trichomonas (Wet Prep) NONE SEEN Vaginal Yeast (Wet Prep) NONE SEEN Date/Time Procedure Status Source Growth 04/23/16 08:00 Gram Stain Received Wound Other Pending 04/23/16 08:00 Wound Culture Received Wound Other Pending 04/21/16 19:40 Urine Culture - Final Complete Urine Clean Catch 10-50,000 CFU/ML MIXED HARPAL... Cardiovascular: Regular Lungs: Clear Abdomen: Other (soft, mild ttp deep pelvic, no rebound) Extremities: No edema A/P Assessment and Plan 61-year-old female with ruptured appendix, colo(appendiceal)-vaginal fistula plan abx advance diet discuss with OB pt will likely need surgery in 4-6 weeks pt known to Dr. May- will discuss further care George Marcelo MD Apr 23, 2016 13:16
[2016-04-23 16:00] VITALS: BP 132/67; PULSE 52; RESP 17; TEMP 98.4; O2SAT 97
[2016-04-23 20:00] VITALS: BP 133/66; PULSE 84; RESP 20; TEMP 97.4; O2SAT 97
--- NOTE | 2016-04-23 22:23 | PD.CONS ---
HPI Chief Complaint FECULENT VAGINAL DC Date Seen: Apr 23, 2016 Time Seen: 13:07 Travel History International Travel<30 Days: No Contact w/Intl Traveler<30Days: No Known Affected Area: No History of Present Illness HPI SEE H/P Allergies-Medications (Allergen,Severity, Reaction): Coded Allergies: Metformin (Verified Allergy, Severe, Diarrhea, 04/21/16) Penicillin (Verified Allergy, Intermediate, SWELLING AND HIVES, 04/21/16) Home Meds Reported Medications Losartan (Cozaar)50 Mg Tab50 Mg PO DAILY #30 TAB Ref 0 04/21/16 Sumatriptan (Imitrex)50 Mg Tab50 Mg PO ONCE PRN (MIGRAINE HEADACHE) Ref 0 If a satisfactory response has not been obtained at 2 hours, a second dose may be administered 04/21/16 Glipizide 10 Mg Tab10 Mg PO DAILY #30 TAB Ref 0 Take 30 minutes before a meal 04/21/16 Fluticasone 12 GM Inh (Flovent Hfa 12 GM Inh)220 Mcg/Act Inh1 Puff INH BID #1 INHALER Ref 0 Use daily at the same time. 04/21/16 Gjyrsjerij-Okuwmhlwrivwt-Zpipdgwb (Fioricet)50-300-40 Mg Cap1 Cap PO Q4H PRN ( HEADACHE) Ref 0 04/21/16 Ezetimibe (Zetia)10 Mg Tab10 Mg PO DAILY #30 TAB Ref 0 04/21/16 Empagliflozin (Jardiance)25 Mg Tab25 Mg PO DAILY #30 TAB Ref 0 04/21/16 Atorvastatin (Lipitor)40 Mg Tab40 Mg PO HS #30 TAB Ref 0 04/21/16 Albuterol 18 GM Inh (Ventolin Hfa 18 GM Inh)90 Mcg/Act Aer1 Puff INH Q6HR PRN ( SHORTNESS OF BREATH) #1 INHALER Ref 0 04/21/16 Physical Exam Narrative GENERAL: Well-nourished, well-developed patient. SKIN: Warm and dry. HEAD: Normocephalic and atraumatic. EYES: No scleral icterus. No injection or drainage. ENT: No nasal drainage noted. Mucous membranes pink. Airway patent. NECK: Supple, trachea midline. No JVD. NEUROLOGICAL: Awake and alert. Motor and sensory grossly within normal limits. Five out of 5 muscle strength in all muscle groups. Normal speech. Data Data Orders Wet Prep Profile (04/23/16 09:25) Wound Culture And Gram Stain (04/23/16 09:25) Admit To Inpatient (04/23/16 ) Inpatient Certification (04/23/16 ) Acetaminophen (Tylenol) (04/23/16 10:00) Diet Full Liquid (04/23/16 Lunch) Consult Low Heel Builder Oncology (04/23/16 ) Consult Colorectal Surgery (04/23/16 ) (Hub Use Only)Inp Phy Cons/Ref (04/23/16 ) (Hub Use Only)Inp Phy Cons/Ref (04/23/16 11:47) Labs Laboratory Tests Test 04/23/16 08:00 Clue Cells (Wet Prep) NONE SEEN Vaginal Trichomonas (Wet Prep) NONE SEEN Vaginal Yeast (Wet Prep) NONE SEEN Date/Time Procedure Status Source Growth 04/23/16 08:00 Gram Stain - Final Resulted Wound Other 04/23/16 08:00 Wound Culture Resulted Wound Other Pending 04/21/16 19:40 Urine Culture - Final Complete Urine Clean Catch 10-50,000 CFU/ML MIXED HARPAL... [facility] Medical Record Reviewed: Yes Interpretation(s) PATIENT WITH EITHER RUPTURED APPENDIX DRAINING VIA VAGINA OR COLO-VAGINAL FISTULA AGREE WITH ABX AND POSSIBLE SURGERY 6 WEEKS HENCE REVIEWED SUPERVISOR ASSEMBLY ROOM CONSULT PT HAS MY CONTACT INFORMATION WILL SEE HER IN OFFICE AFTER DC Admitting diagnosis: ruptured appendicitis Bradley Saez MD Apr 23, 2016 22:23 04/23/16 08:00 Wound Culture Resulted Wound Other Pending 04/21/16 19:40 Urine Culture - Final Complete Urine Clean Catch 10-50,000 CFU/ML MIXED HARPAL... [facility] Medical Record Reviewed: Yes Interpretation(s) PATIENT WITH EITHER RUPTURED APPENDIX DRAINING VIA VAGINA OR COLO-VAGINAL FISTULA AGREE WITH ABX AND POSSIBLE SURGERY 6 WEEKS HENCE REVIEWED SUPERVISOR ASSEMBLY ROOM CONSULT PT HAS MY CONTACT INFORMATION WILL SEE HER IN OFFICE AFTER DC Admitting diagnosis: ruptured appendicitis Bradley Saez MD Apr 23, 2016 22:23
[2016-04-23] MEDS: ACETAMINOPHEN 325 MG TAB PO PRN (23:17)
[2016-04-24 00:03] VITALS: BP 137/71; PULSE 79; RESP 20; TEMP 97.7; O2SAT 95
[2016-04-24] MEDS: INSULIN ASPART SUPPLEMENTAL SCALE SQ SCH ×4 (06:31→22:32)
[2016-04-24] MEDS: ACETAMINOPHEN 325 MG TAB PO PRN (06:31)
[2016-04-24 08:00] VITALS: BP 122/57; PULSE 65; RESP 17; TEMP 95.4; O2SAT 95
[2016-04-24] MEDS: NS + KCL 20 MEQ INJ 1,000 ML IV SCH (08:22)
[2016-04-24] MEDS: PANTOPRAZOLE SODIUM 40 MG VIAL IV SCH (08:22)
[2016-04-24] MEDS: metroNIDAZOLE 500 MG INJ 100 ML IV SCH (08:23)
[2016-04-24] MEDS: FLUTICASONE PROPIONATE 220 MCG/ACT 12 GM INHALER INH SCH ×2 (08:25→21:00)
[2016-04-24] MEDS: SODIUM CHLORIDE 0.9% FLUSH 5 ML FLUSH IV FLUSH SCH ×2 (08:25→22:31)
--- NOTE | 2016-04-24 08:42 | HHI.PR ---
Subjective Remarks resting comfortably with no distress. no abdominal pain, nausea or vomiting. no fever. Objective Vitals Vital Signs Date Time Temp Pulse Resp B/P Pulse Ox O2 Delivery O2 Flow Rate FiO2 04/24/16 08:00 95.4 65 17 122/57 95 04/24/16 01:05 16 04/24/16 00:03 97.7 79 20 137/71 95 04/23/16 20:00 97.4 84 20 133/66 97 04/23/16 16:00 98.4 52 17 132/67 97 04/23/16 12:00 98.1 67 17 140/67 96 I/O 04/23/16 04/23/16 04/23/16 04/24/16 04/24/16 04/24/16 07:00 15:00 23:00 07:00 15:00 23:00 Intake Total 1401 ml 1341 ml 1073 ml 1264 ml Output Total 1300 ml 1200 ml 900 ml Balance 1401 ml 41 ml -127 ml 364 ml Intake Oral 240 ml 240 ml 240 ml 240 ml IV Total 1161 ml 1101 ml 833 ml 1024 ml Output Urine Total 1300 ml 1200 ml 900 ml # Voids 2 # Bowel Movements 0 1 1 1 Result Diagram: 04/22/16 0547 04/22/16 0547 Imaging Last Impressions Abdomen/Pelvis CT 04/21/161919 Signed Impressions: Service Date/Time: Thursday, April 21, 2016 20:55 - CONCLUSION: 1. Inflammatory change throughout the pelvis involving the vaginal cuff and the base of the cecum and to a lesser degree the distal sigmoid colon. If the patient still has the appendix then one needs to be concerned this may represent appendicitis that has ruptured as in well-formed appendix is not seen. It is thought that ruptured appendicitis involving the vaginal cuff is the most likely etiology for these findings. The inflammatory change does extend over to abut the sigmoid colon but the sigmoid colon appears much less affected than the tip of the cecum. 2. Midline abdominal hernia containing a small amount of mesenteric fat. 3. Suspected cyst in the right lobe of the liver. 4. Status post colon resection at the proximal descending colon. El Rosales MD Objective Remarks GENERAL: This is a well-nourished, well-developed patient, in no apparent distress. CARDIOVASCULAR: Regular rate and regular rhythm without murmurs, gallops, or rubs. RESPIRATORY: Clear to auscultation. Breath sounds equal bilaterally. No wheezes , rales, or rhonchi. GASTROINTESTINAL: Abdomen soft, non-tender, nondistended. Normal, active bowel sounds MUSCULOSKELETAL: Extremities without clubbing, cyanosis, or edema. NEURO: Alert & Oriented x4 to person, place, time, situation. Moves all ext x4 Procedures none Medications and IVs Current Medications Sodium Chloride (NS 1000 ml Inj) 1,000 ml @ 1,000 mls/hr Q1H IV Last administered on 04/21/16 19:58; Start 04/21/16 at 19:20; Stop 04/21/16 at 20:19 ; Status DC IV Flush (NS Flush) 2 ml UNSCH PRN IVF FLUSH AFTER USING IV ACCESS Last administered on 04/21/16 19:59; Start 04/21/16 at 19:30; Stop 04/22/16 at 03:57 ; Status DC Iohexol 90 ml 90 ml STK-MED ONCE IV Last administered on 04/21/16 21:10; Start 04/21/16 at 21:10; Stop 04/21/16 at 21:11; Status DC Metronidazole 100 ml @ 100 mls/hr ONCE ONCE IV Last administered on 23:09; Start 04/21/16 at 22:15; Stop 04/21/16 at 23:14; Status DC Ciprofloxacin/ Dextrose 200 ml @ 200 mls/hr ONCE ONCE IV Last administered on 04/21/16 22:10; Start 04/21/16 at 22:15; Stop 04/21/16 at 23:14; Status DC Sodium Chloride (NS 1000 ml Inj) 1,000 ml @ 125 mls/hr Q8H IV Last administered on 04/22/16 04:36; Start 04/22/16 at 03:48; Stop 04/22/16 at 09:09; Status DC IV Flush (NS Flush) 2 ml BID IV FLUSH Last administered on 04/23/16 08:17; Start 04/22/16 at 09:00 IV Flush 2 ml 2 ml UNSCH PRN IV FLUSH FLUSH AFTER USING IV ACCESS; Start at 04:00 Metronidazole 100 ml @ 100 mls/hr Q8H IV Last administered on 04/24/16 08:23; Start 04/22/16 at 08:00 Levofloxacin/ Dextrose (Levaquin 500 Mg Premix Inj) 100 ml @ 100 mls/hr Q24H IV Last administered on 04/22/16 16:22; Start 04/22/16 at 09:00 Pantoprazole Sodium (Protonix Inj) 40 mg DAILY IV Last administered on 08:22; Start 04/22/16 at 09:00 Oxycodone/ Acetaminophen (Percocet 5-325 Mg) 1 tab Q4H PRN PO PAIN SCALE 1 TO 5 Last administered on 04/22/16 09:37; Start 04/22/16 at 04:00; Stop 04/23/16 at 09:58; Status DC Morphine Sulfate (Morphine Inj) 3 mg Q4H PRN IV Pain 6-10;if unable to take PO ; Start 04/22/16 at 04:00 Albuterol Sulfate (Proair Hfa Inh) 1 puff Q6HR PRN INH SHORTNESS OF BREATH; Start 04/22/16 at 09:15 Fluticasone Propionate 1 puff 1 puff BID INH Last administered on 04/24/16 08: 25; Start 04/22/16 at 21:00 Potassium Chloride/Sodium Chloride (KCl Inj/NS 1000 ml Inj) 1,010 ml @ 125 mls/ hr Q8H5M IV ; Start 04/23/16 at 03:48; Stop 04/23/16 at 03:48; Status DC Dextrose (D50w (Vial) Inj) 25 ml UNSCH PRN IV PUSH HYPOGLYCEMIA-SEE COMMENTS; Start 04/22/16 at 09:15 Glucagon (Glucagon Inj) 1 mg UNSCH PRN OTHER HYPOGLYCEMIA-SEE COMMENTS; Start 04/22/16 at 09:15 Insulin Aspart (NovoLOG SUPPLEMENTAL SCALE) 1 ACHS SLIDING SCALE SQ Last administered on 04/24/16 06:31; Start 04/22/16 at 11:00 Enalaprilat 1.25 mg 1.25 mg Q8H PRN IV PUSH SBP> OR = 180, DBP> OR = 100; Start 04/22/16 at 09:15 Potassium Chloride/Sodium Chloride (NS + KCl 20 Meq Inj) 1,000 ml @ 125 mls/hr Q8H IV Last administered on 04/24/16 08:22; Start 04/22/16 at 09:30 Acetaminophen (Tylenol) 650 mg Q4H PRN PO FEVER/PAIN 1-5/HEADACHE Last administered on 04/24/16 06:31; Start 04/23/16 at 10:00 A/P Assessment and Plan - ruptured appendicitis on liquid diet- continue Antibiotics- pain control- surgery managing. [employer] consulted. plan for possible surgery in a few weeks. -hypertension; BP controlled- hold home meds for now- vasotec prn -diabetes mellitus; accu-check with SSI- hold home meds for now -asthma; resumed home inhalers -hypokalemia; replaced -DVT prophylaxis with SCD's Discharge Planning when cleared by surgery. Biju De León MD Apr 24, 2016 08:42
[2016-04-24] MEDS: LEVOFLOXACIN 500 MG PREMIX INJ 100 ML IV SCH (09:32)
--- NOTE | 2016-04-24 10:03 | MB ---
cc: SHANTAL PRESCOTT M.D. DATE OF CONSULTATION: 04/24/2016 CHIEF COMPLAINT Colovaginal fistula. HISTORY OF PRESENT ILLNESS The patient is a 61-year-old female who underwent a left colectomy for T1, N0 tumor in 2010. She has done well since that time and her most recent colonoscopy in January of last year, was essentially negative. She began having some flu-like symptoms last week with some lower abdominal pain and cramping. She then had some vaginal spotting and discharge this week, and came to the emergency department. A CT scan showed concern for ruptured appendicitis connected to the vaginal cuff. She has had one or two episodes of small amounts of stool via the vagina. She had no fevers. She had no nausea or vomiting. She denies any dysuria, or hematuria. PAST MEDICAL HISTORY 1. Diabetes 2. Hypertension 3. Chronic obstructive pulmonary disease, asthma. PAST SURGICAL HISTORY 1. Left colectomy 2. Hysterectomy with bilateral salpingo-oophorectomy. 3. Breast biopsies. ALLERGIES 1. METFORMIN 2. PENICILLIN MEDICATIONS See nurse's notes for details. FAMILY HISTORY: Family history is negative for colorectal cancer. SOCIAL HISTORY The patient denies tobacco or alcohol. PHYSICAL EXAMINATION: GENERAL: This is a pleasant female who appears comfortable. NEUROLOGIC: Neuro is grossly intact. SKIN: Skin is warm, dry. CARDIOVASCULAR SYSTEM: Cardiovascular regular rate. CHEST: Breathing is symmetric bilaterally and nonlabored. ABDOMEN: Soft, nondistended. She is mildly tender in the central suprapubic area. There is no guarding or rebound. EXTREMITIES: Reveal no edema. LABORATORY FINDINGS: Laboratory work reveals a white count of 6.4 on the most recent day, which was the first of April. Chemistry has been basically normal. Urinalysis is culture is pending. 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 PLAN I agree with Dr. Marcelo that the most appropriate plan for this patient is IV antibiotics until the inflammation has calmed down, and then interval colectomy down the road - possibly in 8-12 weeks. I will continue to follow with along with her while she is in the hospital if there is any issues. I will see her in the office as an outpatient as she chooses. Thank you very much for your kind referral. MD Trinity Brambila /9:31 AM /9:50 AM MTDJan
[2016-04-24 12:00] VITALS: BP 137/67; PULSE 73; RESP 17; TEMP 97.6; O2SAT 96
[2016-04-24 15:27] LABS: MEAN CELL VOLUME 84.2 FL (80.0-100.0); MEAN CORPUSCULAR HEMOGLOBIN 28.3 PG (27.0-34.0); MEAN CORPUSCULAR HGB CONC 33.6 % (32.0-36.0); PLATELET COUNT 244 TH/MM3 (150-450); RED BLOOD COUNT 4.51 MIL/MM3 (4.00-5.30); RED CELL DISTRIBUTION WIDTH 12.4 % (11.6-17.2); REVIEW FLAG FINAL; WHITE BLOOD COUNT 6.5 TH/MM3 (4.0-11.0)
[2016-04-24 16:00] VITALS: BP 151/70; PULSE 97; RESP 17; TEMP 97.5; O2SAT 97
[2016-04-24 16:08] LABS: BICARBONATE 28.4 MEQ/L (21.0-32.0); POTASSIUM 3.6 MEQ/L (3.5-5.1)
[2016-04-24 20:00] VITALS: BP 136/67; PULSE 84; RESP 21; TEMP 97.7; O2SAT 97
[2016-04-24] MEDS: metroNIDAZOLE 500 MG TAB PO SCH (22:29)
[2016-04-25] VITALS: BP 137/73; PULSE 69; RESP 20; TEMP 97.3; O2SAT 96
[2016-04-25] MEDS: metroNIDAZOLE 500 MG TAB PO SCH ×3 (05:39→21:39)
[2016-04-25] MEDS: INSULIN ASPART SUPPLEMENTAL SCALE SQ SCH ×4 (05:43→21:40)
--- NOTE | 2016-04-25 07:37 | HHI.PR ---
Subjective Subjective Notes no acute issues, tolerating diet, no fevers Objective Vitals/I&O Vital Signs Date Time Temp Pulse Resp B/P Pulse Ox O2 Delivery O2 Flow Rate FiO2 04/25/16 00:00 97.3 69 20 137/73 96 04/22/16 00:23 Room Air Labs Laboratory Tests Test 04/24/16 14:36 White Blood Count 6.5 Red Blood Count 4.51 Hemoglobin 12.8 Hematocrit 38.0 Mean Corpuscular Volume 84.2 Mean Corpuscular Hemoglobin 28.3 Mean Corpuscular Hemoglobin 33.6 Concent Red Cell Distribution Width 12.4 Platelet Count 244 Mean Platelet Volume 8.5 Sodium Level 141 Potassium Level 3.6 Chloride Level 106 Carbon Dioxide Level 28.4 Anion Gap 7 Blood Urea Nitrogen 3 Creatinine 0.49 Estimat Glomerular Filtration 128 Rate Random Glucose 199 Calcium Level 9.0 Date/Time Procedure Status Source Growth 04/23/16 08:00 Gram Stain - Final Resulted Wound Other 04/23/16 08:00 Wound Culture - Preliminary Resulted Gram Negative [facility] D Enterococcus 04/21/16 19:40 Urine Culture - Final Complete Urine Clean Catch 10-50,000 CFU/ML MIXED HARPAL... Cardiovascular: Regular Lungs: Clear Abdomen: Non-distended, Non-tender A/P Assessment and Plan 61-year-old female with ruptured appendix, colo(appendiceal)-vaginal fistula plan abx advance diet discuss with OB pt will likely need surgery in 6-12 weeks pt known to Dr. May- will discuss further care Pt with anxiety will obtain CTa/p to recheck d/c planning George Marcelo MD Apr 25, 2016 07:26
[2016-04-25 08:00] VITALS: BP 117/62; PULSE 68; RESP 17; TEMP 98; O2SAT 95
[2016-04-25] MEDS: LEVOFLOXACIN 500 MG TAB PO SCH (08:33)
[2016-04-25] MEDS: PANTOPRAZOLE SODIUM 40 MG VIAL IV SCH (08:33)
[2016-04-25] MEDS: SODIUM CHLORIDE 0.9% FLUSH 5 ML FLUSH IV FLUSH SCH ×2 (08:33→21:40)
[2016-04-25] MEDS: FLUTICASONE PROPIONATE 220 MCG/ACT 12 GM INHALER INH SCH ×2 (08:34→21:00)
[2016-04-25] MEDS ORDERED: DIATRIZOATE MEGLUM/DIATRIZOATE SOD 9 ML CUP PO ONE (09:00)
--- NOTE | 2016-04-25 10:17 | HHI.PR ---
Subjective Remarks no fever. is comfortable. no abdominal pain, nausea or vomiting. Objective Vitals Vital Signs Date Time Temp Pulse Resp B/P Pulse Ox O2 Delivery O2 Flow Rate FiO2 04/25/16 08:00 98.0 68 17 117/62 95 04/25/16 00:00 97.3 69 20 137/73 96 04/24/16 20:00 97.7 84 21 136/67 97 04/24/16 16:00 97.5 97 17 151/70 97 04/24/16 12:00 97.6 73 17 137/67 96 I/O 04/24/16 04/24/16 04/24/16 04/25/16 04/25/16 04/25/16 07:00 15:00 23:00 07:00 15:00 23:00 Intake Total 1264 ml 1316 ml 240 ml 240 ml Output Total 900 ml Balance 364 ml 1316 ml 240 ml 240 ml Intake Oral 240 ml 240 ml 240 ml 240 ml IV Total 1024 ml 1076 ml 0 ml Output Urine Total 900 ml # Voids 4 2 3 # Bowel Movements 1 0 0 0 Result Diagram: 04/24/16 1436 04/24/16 1436 Imaging Last Impressions Abdomen/Pelvis CT 04/21/16 1920 Signed Impressions: Service Date/Time: Thursday, April 21, 2016 20:55 - CONCLUSION: 1. Inflammatory change throughout the pelvis involving the vaginal cuff and the base of the cecum and to a lesser degree the distal sigmoid colon. If the patient still has the appendix then one needs to be concerned this may represent appendicitis that has ruptured as in well-formed appendix is not seen. It is thought that ruptured appendicitis involving the vaginal cuff is the most likely etiology for these findings. The inflammatory change does extend over to abut the sigmoid colon but the sigmoid colon appears much less affected than the tip of the cecum. 2. Midline abdominal hernia containing a small amount of mesenteric fat. 3. Suspected cyst in the right lobe of the liver. 4. Status post colon resection at the proximal descending colon. El Rosales MD Objective Remarks GENERAL: This is a well-nourished, well-developed patient, in no apparent distress. CARDIOVASCULAR: Regular rate and regular rhythm without murmurs, gallops, or rubs. RESPIRATORY: Clear to auscultation. Breath sounds equal bilaterally. No wheezes , rales, or rhonchi. GASTROINTESTINAL: Abdomen soft, non-tender, nondistended. Normal, active bowel sounds MUSCULOSKELETAL: Extremities without clubbing, cyanosis, or edema. NEURO: Alert & Oriented x4 to person, place, time, situation. Moves all ext x4 Procedures none Medications and IVs Current Medications Sodium Chloride (NS 1000 ml Inj) 1,000 ml @ 1,000 mls/hr Q1H IV Last administered on 04/21/16 19:58; Start 04/21/16 at 19:20; Stop 04/21/16 at 20:19 ; Status DC IV Flush (NS Flush) 2 ml UNSCH PRN IVF FLUSH AFTER USING IV ACCESS Last administered on 04/21/16 19:59; Start 04/21/16 at 19:30; Stop 04/22/16 at 03:57 ; Status DC Iohexol 90 ml 90 ml STK-MED ONCE IV Last administered on 04/21/16 21:10; Start 04/21/16 at 21:10; Stop 04/21/16 at 21:11; Status DC Metronidazole 100 ml @ 100 mls/hr ONCE ONCE IV Last administered on 23:09; Start 04/21/16 at 22:15; Stop 04/21/16 at 23:14; Status DC Ciprofloxacin/ Dextrose 200 ml @ 200 mls/hr ONCE ONCE IV Last administered on 04/21/16 22:10; Start 04/21/16 at 22:15; Stop 04/21/16 at 23:14; Status DC Sodium Chloride (NS 1000 ml Inj) 1,000 ml @ 125 mls/hr Q8H IV Last administered on 04/22/16 04:36; Start 04/22/16 at 03:48; Stop 04/22/16 at 09:09; Status DC IV Flush (NS Flush) 2 ml BID IV FLUSH Last administered on 04/25/16 08:33; Start 04/22/16 at 09:00 IV Flush 2 ml 2 ml UNSCH PRN IV FLUSH FLUSH AFTER USING IV ACCESS; Start at 04:00 Metronidazole 100 ml @ 100 mls/hr Q8H IV Last administered on 04/24/16 08:23; Start 04/22/16 at 08:00; Stop 04/24/16 at 15:01; Status DC Levofloxacin/ Dextrose (Levaquin 500 Mg Premix Inj) 100 ml @ 100 mls/hr Q24H IV Last administered on 04/24/16 09:32; Start 04/22/16 at 09:00; Stop 04/24/16 at 15:01; Status DC Pantoprazole Sodium (Protonix Inj) 40 mg DAILY IV Last administered on 08:33; Start 04/22/16 at 09:00 Oxycodone/ Acetaminophen (Percocet 5-325 Mg) 1 tab Q4H PRN PO PAIN SCALE 1 TO 5 Last administered on 04/22/16 09:37; Start 04/22/16 at 04:00; Stop 04/23/16 at 09:58; Status DC Morphine Sulfate (Morphine Inj) 3 mg Q4H PRN IV Pain 6-10;if unable to take PO ; Start 04/22/16 at 04:00 Albuterol Sulfate (Proair Hfa Inh) 1 puff Q6HR PRN INH SHORTNESS OF BREATH; Start 04/22/16 at 09:15 Fluticasone Propionate 1 puff 1 puff BID INH Last administered on 04/25/16 08: 34; Start 04/22/16 at 21:00 Potassium Chloride/Sodium Chloride (KCl Inj/NS 1000 ml Inj) 1,010 ml @ 125 mls/ hr Q8H5M IV ; Start 04/23/16 at 03:48; Stop 04/23/16 at 03:48; Status DC Dextrose (D50w (Vial) Inj) 25 ml UNSCH PRN IV PUSH HYPOGLYCEMIA-SEE COMMENTS; Start 04/22/16 at 09:15 Glucagon (Glucagon Inj) 1 mg UNSCH PRN OTHER HYPOGLYCEMIA-SEE COMMENTS; Start 04/22/16 at 09:15 Insulin Aspart (NovoLOG SUPPLEMENTAL SCALE) 1 ACHS SLIDING SCALE SQ Last administered on 04/25/16 05:43; Start 04/22/16 at 11:00 Enalaprilat 1.25 mg 1.25 mg Q8H PRN IV PUSH SBP> OR = 180, DBP> OR = 100; Start 04/22/16 at 09:15 Potassium Chloride/Sodium Chloride (NS + KCl 20 Meq Inj) 1,000 ml @ 125 mls/hr Q8H IV Last administered on 04/24/16 08:22; Start 04/22/16 at 09:30; Stop at 14:34; Status DC Acetaminophen (Tylenol) 650 mg Q4H PRN PO FEVER/PAIN 1-5/HEADACHE Last administered on 04/24/16 06:31; Start 04/23/16 at 10:00 Levofloxacin (Levaquin) 500 mg DAILY PO Last administered on 04/25/16 08:33; Start 04/25/16 at 09:00 Metronidazole (Flagyl) 500 mg Q8HR PO Last administered on 04/25/16 05:39; Start 04/24/16 at 22:00 Diatrizoate Meglum/ Diatrizoate Sod ( Gastroview Liq) 18 ml ONCE ONCE PO Last administered on 04/25/16 09:21; Start 04/25/16 at 09:00; Stop 04/25/16 at 09: 01; Status DC A/P Assessment and Plan - ruptured appendicitis diet was advanced which she's tolerating. continue Antibiotics- pain control- CT of the abdomen/ pelvis to be repeated today- surgery managing. [employer] consulted. plan for possible surgery in a few weeks. -hypertension; BP controlled- hold home meds for now- vasotec prn -diabetes mellitus; accu-check with SSI- hold home meds for now -asthma; resumed home inhalers -hypokalemia; replaced -DVT prophylaxis with SCD's Discharge Planning when cleared by surgery. Biju De León MD Apr 25, 2016 10:16
[2016-04-25] MEDS ORDERED: IOHEXOL 350 MG/ML 10 ML VIAL (for RAD DIAG) IV ONE (11:58)
[2016-04-25 12:00] VITALS: BP 119/66; PULSE 56; RESP 17; TEMP 97.8; O2SAT 95
--- NOTE | 2016-04-25 12:40 | RADRPT ---
EXAM DATE/TIME: 04/25/2016 11:37 [facility] COMPARISON: CT ABDOMEN & PELVIS W CONTRAST, April 21, 2016, 20:55. INDICATIONS : Abdomen pain lower right side revaluate IV CONTRAST: 93 cc Omnipaque 350 (iohexol) IV ORAL CONTRAST: Prescribed oral contrast ingested. RADIATION DOSE: 10.49 CTDIvol (mGy) MEDICAL HISTORY : Hypertension. Carcinoma, colon. Diabetes mellitus type 2. SURGICAL HISTORY : Hysterectomy. ENCOUNTER: Initial ACUITY: 2 days PAIN SCALE: 4/10 LOCATION: Right flank TECHNIQUE: Volumetric scanning of the abdomen and pelvis was performed. Using automated exposure control and ad justment of the mA and/or kV according to patient size, radiation dose was kept as low as reasonably achievable to obtain optimal diagnostic quality images. FINDINGS: LOWER LUNGS: The visualized lower lungs are clear. LIVER: Homogeneous density without lesion. There is no dilation of the biliary tree. No calcified gallston es. Stable hepatic low-density. SPLEEN: Normal size without lesion. PANCREAS: Within normal limits. KIDNEYS: Normal in size and shape. There is no mass, stone or hydronephrosis. ADRENAL GLANDS: Within normal limits. VASCULAR: There is no aortic aneurysm. BOWEL/MESENTERY: There are some inflammatory changes right lower quadrant, less pronounced. Tubular structure is belie [place] to be an inflamed appendix. There is wall thickening of the cecum. Postsurgical changes involving the descending colon. ABDOMINAL WALL: Within normal limits. RETROPERITONEUM: There is no lymphadenopathy. BLADDER: No wall thickening or mass. REPRODUCTIVE: Within normal limits. INGUINAL: There is no lymphadenopathy or hernia. MUSCULOSKELETAL: Within normal limits for patient age. CONCLUSION: 1. Inflamed tubular structure right lower quadrant believed to be the appendix consistent with append icitis. No extraluminal air. Wall thickening of the cecum. 2. Stable hepatic low-density. Gerber Hoffmann MD on April 25, 2016 at 12:35 Board Certified Radiologist. This report was verified electronically.
[2016-04-25 16:00] VITALS: BP 132/63; PULSE 78; RESP 17; TEMP 97.8; O2SAT 95
[2016-04-25 20:00] VITALS: BP 128/61; PULSE 77; RESP 18; TEMP 97.8; O2SAT 96
[2016-04-26] VITALS: BP 108/51; PULSE 64; RESP 18; TEMP 97.4; O2SAT 97
[2016-04-26] MEDS: metroNIDAZOLE 500 MG TAB PO SCH (05:44)
[2016-04-26] MEDS: INSULIN ASPART SUPPLEMENTAL SCALE SQ SCH ×2 (05:45→12:13)
[2016-04-26 08:00] VITALS: BP 118/67; PULSE 70; RESP 16; TEMP 98.5; O2SAT 97
[2016-04-26] MEDS: FLUTICASONE PROPIONATE 220 MCG/ACT 12 GM INHALER INH SCH (08:17)
[2016-04-26] MEDS: SODIUM CHLORIDE 0.9% FLUSH 5 ML FLUSH IV FLUSH SCH (08:17)
[2016-04-26] MEDS: PANTOPRAZOLE SODIUM 40 MG VIAL IV SCH (08:18)
[2016-04-26] MEDS: LEVOFLOXACIN 500 MG TAB PO SCH (08:18)
--- NOTE | 2016-04-26 08:53 | HHI.PR ---
Subjective Remarks overall doing fine. no abdominal pain, nausea or vomiting. no fever. Objective Vitals Vital Signs Date Time Temp Pulse Resp B/P Pulse Ox O2 Delivery O2 Flow Rate FiO2 04/26/16 08:00 98.5 70 16 118/67 97 04/26/16 00:00 97.4 64 18 108/51 97 04/25/16 20:00 97.8 77 18 128/61 96 04/25/16 16:00 97.8 78 17 132/63 95 04/25/16 12:00 97.8 56 17 119/66 95 I/O 04/25/16 04/25/16 04/25/16 04/26/16 04/26/16 04/26/16 07:00 15:00 23:00 07:00 15:00 23:00 Intake Total 240 ml 240 ml 240 ml 480 ml Balance 240 ml 240 ml 240 ml 480 ml Intake Oral 240 ml 240 ml 240 ml 480 ml IV Total 0 ml # Voids 3 4 2 3 # Bowel Movements 0 2 0 0 Result Diagram: 04/24/16 1436 04/24/16 1436 Imaging Last Impressions Abdomen/Pelvis CT 04/25/16 0000 Signed Impressions: Service Date/Time: Monday, April 25, 2016 11:37 - CONCLUSION: 1. Inflamed tubular structure right lower quadrant believed to be the appendix consistent with appendicitis. No extraluminal air. Wall thickening of the cecum. 2. Stable hepatic low-density. Gerber Hoffmann MD Objective Remarks GENERAL: This is a well-nourished, well-developed patient, in no apparent distress. CARDIOVASCULAR: Regular rate and regular rhythm without murmurs, gallops, or rubs. RESPIRATORY: Clear to auscultation. Breath sounds equal bilaterally. No wheezes , rales, or rhonchi. GASTROINTESTINAL: Abdomen soft, non-tender, nondistended. Normal, active bowel sounds MUSCULOSKELETAL: Extremities without clubbing, cyanosis, or edema. NEURO: Alert & Oriented x4 to person, place, time, situation. Moves all ext x4 Procedures none Medications and IVs Current Medications Sodium Chloride (NS 1000 ml Inj) 1,000 ml @ 1,000 mls/hr Q1H IV Last administered on 04/21/16t 19:58; Start 04/21/16 at 19:20; Stop 04/21/16 at 20:19 ; Status DC IV Flush (NS Flush) 2 ml UNSCH PRN IVF FLUSH AFTER USING IV ACCESS Last administered on 04/21/16 19:59; Start 04/21/16 at 19:30; Stop 04/22/16 at 03:57 ; Status DC Iohexol 90 ml 90 ml STK-MED ONCE IV Last administered on 04/21/16 21:10; Start 04/21/16 at 21:10; Stop 04/21/16 at 21:11; Status DC Metronidazole 100 ml @ 100 mls/hr ONCE ONCE IV Last administered on 23:09; Start 04/21/16 at 22:15; Stop 04/21/16 at 23:14; Status DC Ciprofloxacin/ Dextrose 200 ml @ 200 mls/hr ONCE ONCE IV Last administered on 04/21/16 22:10; Start 04/21/16 at 22:15; Stop 04/21/16 at 23:14; Status DC Sodium Chloride (NS 1000 ml Inj) 1,000 ml @ 125 mls/hr Q8H IV Last administered on 04/22/16 04:36; Start 04/22/16 at 03:48; Stop 04/22/16 at 09:09; Status DC IV Flush (NS Flush) 2 ml BID IV FLUSH Last administered on 04/26/16 08:17; Start 04/22/16 at 09:00 IV Flush 2 ml 2 ml UNSCH PRN IV FLUSH FLUSH AFTER USING IV ACCESS; Start at 04:00 Metronidazole 100 ml @ 100 mls/hr Q8H IV Last administered on 04/24/16 08:23; Start 04/22/16 at 08:00; Stop 04/24/16 at 15:01; Status DC Levofloxacin/ Dextrose (Levaquin 500 Mg Premix Inj) 100 ml @ 100 mls/hr Q24H IV Last administered on 04/24/16 09:32; Start 04/22/16 at 09:00; Stop 04/24/16 at 15:01; Status DC Pantoprazole Sodium (Protonix Inj) 40 mg DAILY IV Last administered on 08:18; Start 04/22/16 at 09:00 Oxycodone/ Acetaminophen (Percocet 5-325 Mg) 1 tab Q4H PRN PO PAIN SCALE 1 TO 5 Last administered on 04/22/16 09:37; Start 04/22/16 at 04:00; Stop 04/23/16 at 09:58; Status DC Morphine Sulfate (Morphine Inj) 3 mg Q4H PRN IV Pain 6-10;if unable to take PO ; Start 04/22/16 at 04:00 Albuterol Sulfate (Proair Hfa Inh) 1 puff Q6HR PRN INH SHORTNESS OF BREATH; Start 04/22/16 at 09:15 Fluticasone Propionate 1 puff 1 puff BID INH Last administered on 04/26/16 08: 17; Start 04/22/16 at 21:00 Potassium Chloride/Sodium Chloride (KCl Inj/NS 1000 ml Inj) 1,010 ml @ 125 mls/ hr Q8H5M IV ; Start 04/23/16 at 03:48; Stop 04/23/16 at 03:48; Status DC Dextrose (D50w (Vial) Inj) 25 ml UNSCH PRN IV PUSH HYPOGLYCEMIA-SEE COMMENTS; Start 04/22/16 at 09:15 Glucagon (Glucagon Inj) 1 mg UNSCH PRN OTHER HYPOGLYCEMIA-SEE COMMENTS; Start 04/22/16 at 09:15 Insulin Aspart (NovoLOG SUPPLEMENTAL SCALE) 1 ACHS SLIDING SCALE SQ Last administered on 04/26/16 05:45; Start 04/22/16 at 11:00 Enalaprilat 1.25 mg 1.25 mg Q8H PRN IV PUSH SBP> OR = 180, DBP> OR = 100; Start 04/22/16 at 09:15 Potassium Chloride/Sodium Chloride (NS + KCl 20 Meq Inj) 1,000 ml @ 125 mls/hr Q8H IV Last administered on 04/24/16 08:22; Start 04/22/16 at 09:30; Stop at 14:34; Status DC Acetaminophen (Tylenol) 650 mg Q4H PRN PO FEVER/PAIN 1-5/HEADACHE Last administered on 04/24/16 06:31; Start 04/23/16 at 10:00 Levofloxacin (Levaquin) 500 mg DAILY PO Last administered on 04/26/16 08:18; Start 04/25/16 at 09:00 Metronidazole (Flagyl) 500 mg Q8HR PO Last administered on 04/26/16 05:44; Start 04/24/16 at 22:00 Diatrizoate Meglum/ Diatrizoate Sod ( Gastroview Liq) 18 ml ONCE ONCE PO Last administered on 04/25/16 09:21; Start 04/25/16 at 09:00; Stop 04/25/16 at 09: 01; Status DC Iohexol (Omnipaque 350 Inj) 93 ml STK-MED ONCE IV Last administered on 11:58; Start 04/25/16 at 11:58; Stop 04/25/16 at 11:59; Status DC A/P Assessment and Plan - ruptured appendicitis diet was advanced which she's tolerating. continue Antibiotics- pain control- surgery managing. [employer] consulted. plan for possible surgery in a few weeks. -hypertension; BP controlled- hold home meds for now- vasotec prn -diabetes mellitus; accu-check with SSI- -asthma; resumed home inhalers -hypokalemia; replaced -DVT prophylaxis with SCD's Discharge Planning when cleared by surgery. Biju De León MD Apr 26, 2016 08:53
--- NOTE | 2016-04-26 08:57 | HHI.PR ---
Subjective Subjective Notes no fevers, no issues, tolerating po, ct improved Objective Vitals/I&O Vital Signs Date Time Temp Pulse Resp B/P Pulse Ox O2 Delivery O2 Flow Rate FiO2 04/26/16 08:00 98.5 70 16 118/67 97 Labs Date/Time Procedure Status Source Growth 04/23/16 08:00 Gram Stain - Final Complete Wound Other 04/23/16 08:00 Wound Culture - Final Complete Escherichia Coli Enterococcus Faecalis 04/21/16 19:40 Urine Culture - Final Complete Urine Clean Catch 10-50,000 CFU/ML MIXED HARPAL... Cardiovascular: Regular Lungs: Clear Abdomen: Non-distended, Non-tender Extremities: No edema A/P Assessment and Plan 61-year-old female with ruptured appendix, colo(appendiceal)-vaginal fistula, CT with inflammation but improved plan abx advance diet discuss with OB pt will likely need surgery in 6-12 weeks pt known to Dr. May- will discuss further care d/c plan home today George Marcelo MD Apr 26, 2016 08:57
[2016-04-26] MEDS ORDERED: NORC5TAB PO (10:17)
[2016-04-26] MEDS ORDERED: METR-1 PO (10:17)
[2016-04-26] MEDS ORDERED: LEVO500T3 PO (10:17)
[2016-04-26 12:00] VITALS: BP 120/68; PULSE 72; RESP 12; TEMP 97.9; O2SAT 98
[2016-05-12] MEDS ORDERED: TRAD5TAB PO (10:46)
--- NOTE | 2016-05-14 15:21 | HHI.DS ---
Discharge Summary Admission Date Apr 23, 2016 at 09:52 Discharge Date: Apr 26, 2016 Admitting Diagnosis ruptured appendicitis Brief History 61-year-old female with ruptured appendix, colo(appendiceal)-vaginal fistula PE at Discharge Alert and awake Resp: CTAB Cardiac: RRR Abd: soft non tender Hospital Course This is a 61-year-old female with ruptured appendix, colo(appendiceal)-vaginal fistula. The patient was able to tolerate a regular diet. The patient was able to tolerate by mouth antibiotics. She will likely need surgery in 6-12 weeks. The patient will follow up in the office in about 10 days. Pt Condition on Discharge: Good Discharge Disposition: Discharge Home Discharge Instructions DIET: Follow Instructions for: As Tolerated, No Restrictions Activities you can perform: Regular-No Restrictions Other Activity Instructions: ok to Lupe Mcarthur May 14, 2016 15:21
== END 2016-04-26 13:24 | disposition home or self-care (01) | DRG 372 ==
LOC: PHED 17:42 → INTOOBSV 21:54 → PHEDA 21:54 → N07B 04-22 02:14 → OBSVTOIN 04-23 09:52
PROVIDERS: ADMIT Surgery; ATTEND Surgery
DX: K35.2 Acute appendicitis with generalized peritonitis (principal); L03.90 Cellulitis, unspecified; J44.9 Chronic obstructive pulmonary disease, unspecified; I10 Essential (primary) hypertension; E11.9 Type 2 diabetes mellitus without complications; E78.5 Hyperlipidemia, unspecified; J45.909 Unspecified asthma, uncomplicated; Z85.038 Personal history of other malignant neoplasm of large intestine; E87.6 Hypokalemia; G47.30 Sleep apnea, unspecified; N89.8 Other specified noninflammatory disorders of vagina; Z90.49 Acquired absence of other specified parts of digestive tract; Z90.710 Acquired absence of both cervix and uterus; Z90.722 Acquired absence of ovaries, bilateral; F41.9 Anxiety disorder, unspecified
CPT/HCPCS: 74177; 76937; 80048; 80053; 81001; 82378; 82948; 83690; 85025; 85027; 86301; 87070; 87077; 87086; 87186; 87205; 87210; 96360; C9113; G0378; J0744; J1815; J1956; J3480; J7030; Q9963; Q9967

== ENCOUNTER 2016-07-20 16:42 | Inpatient (IN) | payer OTHER ==
[~2016-07-20] VITALS: Ht 162.6 cm; Wt 87.4 kg
[~2016-07-20 16:42] MED LIST changes: -ATOR40TA PO; +BUTA1CAP PO; -EZET10 PO; -FIORTAB4 PO; -FLOV250A INH; +FLUTI220I INH; +LIPI40TA PO; -SUMA50; +TRAD5TAB PO; +ZETI10TA5 PO
[2016-07-27] MEDS ORDERED: CHOL5000 PO (10:37)
[2016-07-27] MEDS ORDERED: ZYRT10CA PO (10:40)
[2016-07-31] MEDS ORDERED: DEXT 5%-NACL 0.9% 1000 ML INJ 1,000 ML IV SCH (06:45)
[2016-07-31] MEDS ORDERED: LACTATED RINGER'S 1000 ML IV PRN (06:45)
[2016-07-31] MEDS ORDERED: METRONIDAZOLE 500 MG/100 ML ISONTONIC SOLN IV SCH (06:45)
[2016-07-31] MEDS ORDERED: ceFAZolin 2 GM PREMIX 50 ML IV SCH (06:45)
[2016-07-31] MEDS ORDERED: POVIDONE IODINE 5% (ANTISEPSIS KIT) 4 APPLICATIONS EACH NARE PRN (06:45)
[2016-07-31] MEDS ORDERED: METOPROLOL TARTRATE 25 MG TAB PO PRN (06:45)
[2016-07-31] MEDS ORDERED: INSULIN HUMAN REGULAR 1,000 UNITS/10 ML VIAL SQ PRN (06:45)
[2016-07-31] MEDS ORDERED: CHLORHEXIDINE GLUCONATE 2 % 1 PACK (2 CLOTHS) TOPICAL PRN (06:45)
[2016-07-31] MEDS ORDERED: SODIUM CHLORID 0.9% 500 ML IV PRN (06:45)
[2016-07-31 07:12] VITALS: BP 133/72; PULSE 94; RESP 16; TEMP 98.1; O2SAT 96
--- NOTE | 2016-07-31 08:09 | PD.HP.UP ---
H&P Update Note The Pre-Admit History and Physical Examination regarding the above named patient was reviewed (including, but not limited to, vital signs, heart, lungs, co-morbid conditions), and upon re-examination it is noted that: the patient's condition has not significantly changed since the last examination. Felicia Batista MD July 31, 2016 08:09
[2016-07-31] MEDS ORDERED: ACETAMINOPHEN 1000 MG/100 ML VIAL IV ONE (08:27)
[2016-07-31] MEDS ORDERED: DEXAMETHASONE SOD PHOS 4 MG/ML VIAL ONE (08:28)
[2016-07-31] MEDS ORDERED: PROPOFOL 200 MG/20 ML AMP IV ONE (09:26)
[2016-07-31] MEDS ORDERED: NEOSTIGMINE 3 MG/3 ML SYR IV ONE (09:27)
[2016-07-31] MEDS ORDERED: ONDANSETRON HCL 4 MG/2 ML VIAL IV PUSH ONE (09:27)
[2016-07-31] MEDS ORDERED: LACTATED RINGER'S 1000 ML INJ 1,000 ML IV ONE (09:27)
[2016-07-31] MEDS ORDERED: NORMOSOL R INJ 2,000 ML IV ONE (09:27)
--- NOTE | 2016-07-31 10:04 | PD.OP ---
Operative Report Date of Surgery: July 31, 2016 Preoperative Diagnosis: (1) Fistula of appendix Postoperative Diagnosis: (1) Fistula of appendix Procedure: Cystoscopy and placement of bilateral ureteral catheters Anesthesia: General Surgeon: Isiah Tapia Seeing Eye Dog Trainer(s): None Operation and Findings: Urologic indication for procedures: Consulted intraoperatively to place bilateral ureteral catheters to aid in visualization of this patient's ureters during her colorectal procedure. Urologic procedures in detail: Concurrent with the colorectal surgeon I proceeded with placement of bilateral ureteral catheters as follows. Initially cystoscopic evaluation was performed utilizing the rigid cystoscope with the 22 Ivor[place] sheath and the 30 lens. Both right and left ureteral orifices were in correct anatomic position effluxing clear yellow urine. There were no bladder mucosal lesions, calculi or diverticula formation. There was no evidence of any fistulous tract with the urinary bladder. I next proceeded with passing a sensor 0.035 wire up the patient's left ureter until a small amount of resistance was met. A 6 [place] open-ended catheter was next advanced over the wire 25 cm in a cephalad direction. With the catheter in place, the wire was withdrawn and reintroduced through the secondary site via the cystoscope. In similar fashion the contralateral side was accomplished. With both ureteral catheters in place, the cystoscope and guidewire were withdrawn and a 16 Ivorian 10 cc [place] catheter was placed. Both ureteral catheters were next anchored to the [place] by a connector in all 3 catheters placed to gravity drainage. This completes the urologic surgery portion of the procedures on this patient. Isiah Tapia MD July 31, 2016 10:03
[2016-07-31] MEDS ORDERED: Post-op Orders (for Pharmacy) MISC XX ONE (12:15)
[2016-07-31] MEDS ORDERED: NALOXONE HCL 0.4 MG/ML AMP IV PRN (12:15)
[2016-07-31] MEDS ORDERED: BENZOCAINE 6 MG/MENTHOL 10 MG LOZENGE BUCCAL PRN (12:15)
[2016-07-31] MEDS ORDERED: ENALAPRILAT 2.5 MG/2 ML VIAL IV PRN (12:15)
[2016-07-31] MEDS ORDERED: SODIUM CHLORIDE 0.9% FLUSH 5 ML FLUSH IVF PRN (12:15)
[2016-07-31] MEDS ORDERED: ENALAPRILAT 1.25 MG/ML VIAL IV PRN (12:15)
[2016-07-31] MEDS ORDERED: POTASSIUM CHLOR 40 MEQ PREMIX 100 ML IV-CENTRAL PRN (12:15)
[2016-07-31] MEDS ORDERED: ACETAMINOPHEN 325 MG TAB PO PRN (12:15)
[2016-07-31] MEDS ORDERED: POTASSIUM CHLOR 20 MEQ PREMIX 100 ML IV PRN (12:15)
[2016-07-31] MEDS ORDERED: diphenhydrAMINE HCL 50 MG/ML VIAL IV PRN (12:15)
[2016-07-31] MEDS ORDERED: ACETAMINOPHEN/HYDROcodone 325 MG/5 MG TAB PO PRN ×2 (12:15)
[2016-07-31] MEDS ORDERED: DO NOT ADM ANY ANTICOAGULANT DRUGS PRN (12:16)
[2016-07-31] MEDS ORDERED: fentaNYL CITRATE 250 MCG/5 ML AMP ONE (12:28)
[2016-07-31] MEDS ORDERED: MIDAZOLAM HCL 2 MG/2 ML VIAL ONE (12:29)
[2016-07-31] MEDS ORDERED: MORPHINE SULFATE 4 MG/ML INJ ONE (12:29)
[2016-07-31 13:17] LABS: AUTOMATED NEUTROPHIL # 11.9 TH/MM3 (1.8-7.7); BASOPHIL % 0.1 % (0.0-2.0); HEMATOCRIT 37.8 % (35.0-46.0); HEMO FLAGS DIFF FINAL; LYMPH % 6.3 % (9.0-44.0); LYMPHOCYTE # 0.8 TH/MM3 (1.0-4.8); MEAN CELL VOLUME 82.9 FL (80.0-100.0); MEAN CORPUSCULAR HEMOGLOBIN 28.6 PG (27.0-34.0); MEAN CORPUSCULAR HGB CONC 34.5 % (32.0-36.0); MONO % 0.9 % (0.0-8.0); NEUT % 92.7 % (16.0-70.0); PLATELET COUNT 243 TH/MM3 (150-450); RED BLOOD COUNT 4.56 MIL/MM3 (4.00-5.30); WHITE BLOOD COUNT 12.8 TH/MM3 (4.0-11.0)
[2016-07-31] MEDS ORDERED: *ONDANSETRON 4 MG VIAL PERIprocedural Use ONLY ONE (13:31)
[2016-07-31 13:43] LABS: BICARBONATE 24.5 MEQ/L (21.0-32.0); POTASSIUM 3.7 MEQ/L (3.5-5.1)
[2016-07-31] MEDS ORDERED: ALBUTEROL SULFATE 90 MCG/ACT HFA 18 GM INHALER INH PRN (13:45)
[2016-07-31] MEDS ORDERED: MORPHINE SULFATE 30 MG/30 ML PCA IV SCH (13:45)
[2016-07-31] MEDS ORDERED: D5-NS + KCL 20 MEQ INJ 1,000 ML IV SCH (14:00)
[2016-07-31] MEDS ORDERED: INSULIN HUMAN REGULAR 1,000 UNITS/10 ML VIAL SQ ONE ×3 (15:00→15:30)
[2016-07-31] MEDS: NS + KCL 20 MEQ INJ 1,000 ML IV SCH ×2 (15:15→23:23)
[2016-07-31] MEDS ORDERED: NS + KCL 20 MEQ INJ 1,000 ML ONE (15:19)
[2016-07-31] MEDS ORDERED: SODIUM CHLORID 0.9% 500 ML INJ 500 ML IV ONE (16:00)
[2016-07-31 17:07] VITALS: BP 110/54; PULSE 80; RESP 16; TEMP 96.8; O2SAT 93
[2016-07-31 20:00] VITALS: BP 109/59; PULSE 78; RESP 20; TEMP 95.9; O2SAT 97
[2016-07-31 20:41] VITALS: RESP 18
[2016-07-31] MEDS: PCA - TOTAL MG MORPHINE DELIVERED PER SHIFT SCH (20:49)
[2016-07-31] MEDS: LOSARTAN 50 MG TAB PO SCH (21:00)
[2016-07-31] MEDS: ONDANSETRON HCL 4 MG/2 ML VIAL IV PRN (21:50)
[2016-07-31] MEDS: SODIUM CHLORIDE 0.9% FLUSH 5 ML FLUSH IVF SCH (22:07)
[2016-07-31] MEDS: FLUTICASONE PROPIONATE 220 MCG/ACT 12 GM INHALER INH SCH (22:53)
[2016-07-31] MEDS: metroNIDAZOLE 500 MG INJ 100 ML IV SCH (23:23)
[2016-08-01] VITALS (9 sets, daily range): BP systolic 102–126; BP diastolic 49–73; PULSE 95–118; RESP 18–21; TEMP 97.4–98.5; O2SAT 90–94
[2016-08-01] MEDS: ONDANSETRON HCL 4 MG/2 ML VIAL IV PRN (03:03)
[2016-08-01] MEDS: PCA - TOTAL MG MORPHINE DELIVERED PER SHIFT SCH (04:20)
[2016-08-01] MEDS: KETOROLAC TROMETHAMINE 30 MG/ML (IVP) VIAL IVP PRN ×3 (05:13→17:59)
[2016-08-01] MEDS ORDERED: ONDANSETRON HCL 4 MG/2 ML VIAL IV PRN (05:30)
[2016-08-01] MEDS: PANTOPRAZOLE SODIUM 40 MG VIAL IVP SCH (08:53)
[2016-08-01] MEDS: metroNIDAZOLE 500 MG INJ 100 ML IV SCH (08:54)
[2016-08-01] MEDS: NS + KCL 20 MEQ INJ 1,000 ML IV SCH ×2 (08:55→18:02)
[2016-08-01] MEDS: FLUTICASONE PROPIONATE 220 MCG/ACT 12 GM INHALER INH SCH ×2 (08:55→21:23)
[2016-08-01] MEDS: SODIUM CHLORIDE 0.9% FLUSH 5 ML FLUSH IVF SCH ×2 (09:00→21:00)
[2016-08-01] MEDS: HEPARIN SODIUM - SQ 10,000 UNITS/ML VIAL SQ SCH ×2 (11:36→21:22)
[2016-08-01 11:40] LABS: AUTOMATED NEUTROPHIL # 11.7 TH/MM3 (1.8-7.7); BASOPHIL % 0.2 % (0.0-2.0); EOSINOPHIL % 0.1 % (0.0-4.0); HEMATOCRIT 37.7 % (35.0-46.0); HEMO FLAGS DIFF FINAL; LYMPH % 7.3 % (9.0-44.0); MEAN CELL VOLUME 84.7 FL (80.0-100.0); MEAN CORPUSCULAR HGB CONC 33.1 % (32.0-36.0); MONO % 5.3 % (0.0-8.0); NEUT % 87.1 % (16.0-70.0); PLATELET COUNT 213 TH/MM3 (150-450); RED BLOOD COUNT 4.45 MIL/MM3 (4.00-5.30); RED CELL DISTRIBUTION WIDTH 13.4 % (11.6-17.2); WHITE BLOOD COUNT 13.4 TH/MM3 (4.0-11.0)
--- NOTE | 2016-08-01 20:09 | MP ---
cc: ED PERRY,SHANTAL LEI MD DATE OF SURGERY: 07/31/2016 PREOPERATIVE DIAGNOSIS: Appendicovaginal fistula. POSTOPERATIVE DIAGNOSIS: Appendicovaginal fistula. OPERATIVE PROCEDURE PERFORMED: Extensive laparoscopic/robotic lysis of adhesions. Robotic appendectomy. SURGEON: Shantal Batista M.D. CORPORATE AUDITOR: Luis. ANESTHESIA: General per ET tube. ESTIMATED BLOOD LOSS: Less than 50 cc. INDICATIONS FOR THE PROCEDURE: The patient is a 61-year-old female who had a ruptured appendicitis about three to four months ago, with resultant appendicovaginal fistula. OPERATIVE FINDINGS: The patient had adhesions of small bowel to the anterior abdominal wall, as well as to the right lower quadrant from her previous colon resection. In addition, she had adhesions of the appendix posteriorly and down into the pelvis, in the area of the vaginal cuff. The liver was a visibly normal, as was the gallbladder , and the remainder of the bowel had no visible abnormalities. DESCRIPTION OF THE PROCEDURE IN DETAIL: The patient was brought to the operating room and placed in the supine position. After induction of general anesthesia, Dr. Tapia came in and performed cystoscopy with placement of bilateral ureteral catheters. Please see his operative note for details. The patient was then positioned in the prone position with the bed slightly broken and the skin of the anterior abdominal wall was prepped and draped in the usual sterile fashion. A site was chosen for the initial trocar. I put in the #2 trocar first with the idea that if we ended up going mostly in the right lower quadrant, we could use this as the #1 and if we ended up going into the right upper quadrant, we could use the #2. This was a #5 trocar that was placed two fingerbreadths below the left costal margin, in the left midclavicular line. It was placed under direct vision using a laparoscope and CO2 insufflation was then undertaken and a brief abdominal survey was performed. The patient was noted to have some adhesions as noted of the small bowel to the anterior abdominal wall along the length of the previous incision, as well as in the right lower quadrant and the left lower quadrant. The second port placed was a #5 port, which was just to the left of the left midclavicular line midway between the umbilicus and the symphysis pubis. The adhesions were then carefully dissected free using a combination of sharp and electrocautery, until we had dissected free the anterior abdominal wall. Attention was then turned to the right lower quadrant and the small bowel was gently teased out of that area. There were multiple interloop adhesions, as well as adhesions to the cecum and the sigmoid, which were carefully and gently dissected free using electrocautery. Eventually we had fairly good visibility and it became apparent that we would be able to do an appendectomy without having to take down the hepatic flexure or really do any kind of a full colon resection, as the cecum itself was not particularly inflamed. The remainder of the ports were placed as follows: The camera port was placed just to the right and underneath the umbilicus, in the previous midline incision and the #2 port was then placed in the suprapubic position. These were placed under direct vision using a laparoscope. The robot was then docked. The cecum was then gently retracted anteriorly and the dissection continued, freeing up the additional loops of small bowel, adhesions to the cecum and eventually clearing of the lateral attachments of the cecum to the lateral pelvic sidewall and the lower right abdominal wall as well. The appendix was traced down into the pelvis, where it lay up against the vaginal cuff as expected but this was actually fairly easily dissected free until we eventually had full mobility of the appendix. The base of this was clearly dissected out and the cecum was really quite free of thickening or inflammatory changes at this area. A blue load of the [place] endostapler was placed across the bowel at this level. This was closed, taking a wedge of the cecum with the appendix, held for 30 seconds. fired, and removed. The appendix was then gently peeled off the posterior surface of the cecum until the appendiceal vessels were isolated. A white load of the [place] endostapler was placed across the vessels, held for 30 seconds, fired and removed. The specimen was then put in an EndoCatch bag, removed and sent for pathology. The staple lines were examined and appeared healthy and complete. I did look very closely at the posterior wall of the cecum to be sure there was no sign of any damage to the bowel wall and there was not. I also reexamined all of the small bowel where we had done our adhesiolysis, with no sign of any damage noted. The peritoneal cavity was irrigated with warm normal saline and the area around the vaginal cuff was also visualized and although there was some mild inflammation, there was nothing significant that needed to be addressed. The instruments were removed and the robot was then undocked and the laparoscope was re-introduced into the peritoneal cavity. The 10/12 ports were closed using the CrossBow closure device and the #0 Vicryl suture. There was some mild bleeding noted from the left lower quadrant site. Once we secured the suture, however, the bleeding stopped. The C02 was desufflated to the extent possible. The fascial sutures were secured. The wounds were copiously irrigated with warm normal saline and closed in an interrupted subcuticular fashion using 3-0 Vicryl. Steri-Strips and sterile dressings were then applied. All sponge, needle and instrument counts were correct and the patient was returned to the post anesthesia care unit in stable condition. MD LAUREL Brambila/RENÉE /12:07 PM /7:51 PM DELTA
[2016-08-01] MEDS: LOSARTAN 50 MG TAB PO SCH (21:00)
--- NOTE | 2016-08-01 22:50 | HHI.PR ---
Subjective Remarks C/R Surg POD #1 afebrile, VSS UO good - stent dc'd dry heaves Objective - Vital Signs Date Time Temp Pulse Resp B/P Pulse Ox O2 Delivery O2 Flow Rate FiO2 08/01/16 20:00 98.5 95 20 113/49 94 08/01/16 09:00 Nasal Cannula 3.00 Result Diagram: 08/01/16 1107 08/01/16 1107 Other Results PE alert Abd - soft, wounds dry, no tympany A/P Assessment and Plan Imp: stable, OOB dc [employer]TER start PO Carlos Rosenthal MD August 01, 2016 22:50
[2016-08-02] VITALS: BP 97/49; PULSE 76; RESP 20; TEMP 98.2; O2SAT 95
[2016-08-02 05:14] VITALS: BP 127/59; PULSE 97; RESP 20; TEMP 97.2; O2SAT 92
[2016-08-02] MEDS ORDERED: FUROSEMIDE 20 MG/2 ML VIAL IV PUSH SCH (05:45)
[2016-08-02 05:47] LABS: AUTOMATED NEUTROPHIL # 7.4 TH/MM3 (1.8-7.7); BASOPHIL % 0.4 % (0.0-2.0); EOSINOPHIL # 0.1 TH/MM3 (0-0.4); EOSINOPHIL % 1.5 % (0.0-4.0); HEMATOCRIT 34.5 % (35.0-46.0); HEMO FLAGS DIFF FINAL; LYMPH % 15.9 % (9.0-44.0); LYMPHOCYTE # 1.5 TH/MM3 (1.0-4.8); MEAN CELL VOLUME 86.6 FL (80.0-100.0); MEAN CORPUSCULAR HGB CONC 33.5 % (32.0-36.0); MONO % 6.4 % (0.0-8.0); NEUT % 75.8 % (16.0-70.0); PLATELET COUNT 178 TH/MM3 (150-450); RED BLOOD COUNT 3.98 MIL/MM3 (4.00-5.30); RED CELL DISTRIBUTION WIDTH 13.1 % (11.6-17.2); WHITE BLOOD COUNT 9.7 TH/MM3 (4.0-11.0)
[2016-08-02 05:59] LABS: BICARBONATE 23.2 MEQ/L (21.0-32.0); POTASSIUM 3.8 MEQ/L (3.5-5.1)
[2016-08-02 08:00] VITALS: BP 119/60; PULSE 81; RESP 16; TEMP 97.6; O2SAT 95
[2016-08-02] MEDS: SODIUM CHLORIDE 0.9% FLUSH 5 ML FLUSH IVF SCH ×2 (09:00→20:07)
--- NOTE | 2016-08-02 09:30 | HHI.PR ---
Subjective Remarks C/R Surg POD #2 afebrile, VSS UO good - stent dc'd rodney PO Objective - Vital Signs Date Time Temp Pulse Resp B/P Pulse Ox O2 Delivery O2 Flow Rate FiO2 08/02/16 05:14 97.2 97 20 127/59 92 08/01/16 21:20 Nasal Cannula 2.00 Result Diagram: 08/02/16 0443 08/02/16 0443 Objective Remarks PE alert Abd - soft, wound draining less, clean A/P Assessment and Plan Imp: stable, OOB start PO, adv prn dc plans Carlos Rosenthal MD August 02, 2016 09:30
[2016-08-02] MEDS: KETOROLAC TROMETHAMINE 30 MG/ML (IVP) VIAL IVP PRN (09:36)
[2016-08-02] MEDS: PANTOPRAZOLE SODIUM 40 MG VIAL IVP SCH (09:36)
[2016-08-02] MEDS: HEPARIN SODIUM - SQ 10,000 UNITS/ML VIAL SQ SCH ×2 (09:44→22:39)
[2016-08-02] MEDS: FLUTICASONE PROPIONATE 220 MCG/ACT 12 GM INHALER INH SCH ×2 (09:45→20:07)
[2016-08-02] MEDS: FUROSEMIDE 20 MG/2 ML VIAL IV PUSH SCH ×2 (09:45→20:07)
[2016-08-02 12:00] VITALS: BP 134/69; PULSE 75; RESP 16; TEMP 96.2; O2SAT 96
[2016-08-02 16:00] VITALS: BP 141/69; PULSE 82; RESP 17; TEMP 98.1; O2SAT 95
[2016-08-02 20:00] VITALS: BP 136/67; PULSE 83; RESP 20; TEMP 98.4; O2SAT 96
[2016-08-02] MEDS: LOSARTAN 50 MG TAB PO SCH (20:06)
[2016-08-03] VITALS: BP 141/69; PULSE 86; RESP 20; TEMP 97.8; O2SAT 95
[2016-08-03 08:00] VITALS: BP 142/75; PULSE 86; RESP 17; TEMP 97.2; O2SAT 95
[2016-08-03] MEDS: SODIUM CHLORIDE 0.9% FLUSH 5 ML FLUSH IVF SCH (09:00)
[2016-08-03] MEDS: PANTOPRAZOLE SODIUM 40 MG VIAL IVP SCH (09:02)
[2016-08-03] MEDS: FUROSEMIDE 20 MG/2 ML VIAL IV PUSH SCH (09:02)
[2016-08-03] MEDS: FLUTICASONE PROPIONATE 220 MCG/ACT 12 GM INHALER INH SCH (09:03)
[2016-08-03 09:11] LABS: AUTOMATED NEUTROPHIL # 4.4 TH/MM3 (1.8-7.7); BASOPHIL % 0.3 % (0.0-2.0); EOSINOPHIL # 0.2 TH/MM3 (0-0.4); EOSINOPHIL % 3.6 % (0.0-4.0); HEMATOCRIT 37.5 % (35.0-46.0); HEMO FLAGS DIFF FINAL; LYMPH % 23.2 % (9.0-44.0); LYMPHOCYTE # 1.5 TH/MM3 (1.0-4.8); MEAN CELL VOLUME 84.1 FL (80.0-100.0); MEAN CORPUSCULAR HEMOGLOBIN 29.1 PG (27.0-34.0); MEAN CORPUSCULAR HGB CONC 34.6 % (32.0-36.0); MONO % 6.6 % (0.0-8.0); NEUT % 66.3 % (16.0-70.0); PLATELET COUNT 187 TH/MM3 (150-450); RED BLOOD COUNT 4.46 MIL/MM3 (4.00-5.30); RED CELL DISTRIBUTION WIDTH 12.4 % (11.6-17.2); WHITE BLOOD COUNT 6.7 TH/MM3 (4.0-11.0)
[2016-08-03 09:32] LABS: BICARBONATE 26.6 MEQ/L (21.0-32.0); POTASSIUM 3.1 MEQ/L (3.5-5.1)
[2016-08-03 09:50] VITALS: O2SAT 98
[2016-08-03] MEDS: HEPARIN SODIUM - SQ 10,000 UNITS/ML VIAL SQ SCH (11:32)
[2016-08-03 12:00] VITALS: BP 126/74; PULSE 87; RESP 20; TEMP 98; O2SAT 96
--- NOTE | 2016-08-03 14:28 | HHI.PR ---
Subjective Remarks POD#3 s/p robotic BRYAN/Appx comfortable Objective Vital Signs Date Time Temp Pulse Resp B/P Pulse Ox O2 Delivery O2 Flow Rate FiO2 08/03/16 12:00 98.0 87 20 126/74 96 08/03/16 08:00 97.2 86 17 142/75 95 08/03/16 00:00 97.8 86 20 141/69 95 08/02/16 20:00 Room Air 08/02/16 20:00 98.4 83 20 136/67 96 08/02/16 17:56 Nasal Cannula 3.00 08/02/16 16:00 98.1 82 17 141/69 95 I/O 08/02/16 08/02/16 08/02/16 08/03/16 08/03/16 08/03/16 07:00 15:00 23:00 07:00 15:00 23:00 Intake Total 887 ml 1320 ml 450 ml 480 ml Output Total 400 ml 2350 ml 650 ml 600 ml Balance 487 ml -1030 ml -200 ml -120 ml Intake Oral 240 ml 1320 ml 450 ml 480 ml IV Total 647 ml Output Urine Total 400 ml 2100 ml 650 ml 600 ml Stool Total 250 ml # Bowel Movements 2 0 0 Result Diagram: 08/03/16 0839 08/03/16 0839 Objective Remarks Abdomen soft, nondistended, mild tenderness Wounds clean Assessment and Plan Assessment and Plan POD # 3 s/p BRYAN, APPX Doing well Home today Followup with me 3 weeks Felicia Batista MD August 03, 2016 14:27
[2016-08-03] MEDS ORDERED: HYDR-3516 PO (14:30)
[2016-08-03] MEDS ORDERED: POTASSIUM CHLORIDE 10 MEQ CONTROLLED RELEASE TAB PO ONE (17:00)
--- NOTE | 2016-08-04 22:26 | MD ---
cc: SHANTAL PRESCOTT M.D. ADMISSION DATE: 07/31/2016 DISCHARGE DATE: 08/03/2016 ADMISSION DIAGNOSIS Appendiceal vaginal fistula. DISCHARGE DIAGNOSIS Appendiceal vaginal fistula. PROCEDURE Robotic/laparoscopic lysis of adhesions. Robotic extended appendectomy. HOSPITAL COURSE The patient is a 61-year-old female who had a ruptured appendicitis earlier this year and developed an appendiceal vaginal fistula as a result. She was admitted to hospital on July 31, after an outpatient bowel prep. She was taken to the operating room where she underwent the above-named procedure. Postoperatively, the patient did well with the exception of some mild vomiting on day #2, and a little bit of fluid overload which responded nicely to Lasix. She was discharged on July,, with instructions to follow-up with myself in three weeks in the office. MD LAUREL Brambila/ /2:32 PM /10:23 PM MTDJan
== END 2016-08-03 18:52 | disposition home or self-care (01) | DRG 337 ==
LOC: HSDI 07-31 06:24 → N07A 07-31 16:28
PROVIDERS: ADMIT Colon & Rectal Surgery; ATTEND Colon & Rectal Surgery
PROC: 8E0W4CZ Robotic Assisted Procedure of Trunk Region, Percutaneous Endoscopic Approach (ICD-10-PCS; 2016-07-31)
PROC: 0T788DZ Dilation of Bilateral Ureters with Intraluminal Device, Via Natural or Artificial Opening Endoscopic (ICD-10-PCS; 2016-07-31)
PROC: 0DTJ4ZZ Resection of Appendix, Percutaneous Endoscopic Approach (ICD-10-PCS; principal; 2016-07-31 08:30)
PROC: 0DNW4ZZ Release Peritoneum, Percutaneous Endoscopic Approach (ICD-10-PCS; 2016-07-31 08:30)
DX: N82.3 Fistula of vagina to large intestine (principal); E87.70 Fluid overload, unspecified; I10 Essential (primary) hypertension; R11.10 Vomiting, unspecified; K66.0 Peritoneal adhesions (postprocedural) (postinfection); J45.909 Unspecified asthma, uncomplicated; E78.5 Hyperlipidemia, unspecified; E66.9 Obesity, unspecified; N73.6 Female pelvic peritoneal adhesions (postinfective); E11.9 Type 2 diabetes mellitus without complications; Z79.84 Long term (current) use of oral hypoglycemic drugs; Z88.0 Allergy status to penicillin; Z88.8 Allergy status to other drugs, medicaments and biological substances; Z68.33 Body mass index [BMI] 33.0-33.9, adult
CPT/HCPCS: 80048; 82948; 85025; 86850; 86900; 86901; 88304; 94150; C1769; C9113; J0131; J0690; J1100; J1644; J1815; J1885; J1940; J2250; J2270; J2405; J2710; J3010; J3480; J7040; J7120

== ENCOUNTER → 2016-07-27 | Outpatient (CLI) | payer OTHER ==
[~2016-07-27] MED LIST changes: +BACT800T5 PO; +CHOL5000 PO; +HYDR-3516 PO; +IMIT50TA PO; +LEVO500T3 PO; +METR-1 PO; +NORC5TAB PO; +TRAM50TA PO; +ZYRT10CA PO
[2016-07-27 10:54] LABS: AUTOMATED NEUTROPHIL # 4.8 TH/MM3 (1.8-7.7); BASOPHIL % 0.5 % (0.0-2.0); EOSINOPHIL # 0.1 TH/MM3 (0-0.4); EOSINOPHIL % 1.1 % (0.0-4.0); HEMATOCRIT 39.7 % (35.0-46.0); HEMO FLAGS DIFF FINAL; LYMPH % 29.4 % (9.0-44.0); LYMPHOCYTE # 2.2 TH/MM3 (1.0-4.8); MEAN CELL VOLUME 82.6 FL (80.0-100.0); MEAN CORPUSCULAR HEMOGLOBIN 28.9 PG (27.0-34.0); MONO % 4.3 % (0.0-8.0); NEUT % 64.7 % (16.0-70.0); PLATELET COUNT 248 TH/MM3 (150-450); RED BLOOD COUNT 4.81 MIL/MM3 (4.00-5.30); WHITE BLOOD COUNT 7.5 TH/MM3 (4.0-11.0)
[2016-07-27 10:57] LABS: BLOOD, URINE NEG (NEG); COMMENT (UR) CULT NOT INDICATED; CULTURE IF INDICATED CULT NOT INDICATED; GLUCOSE,URINE 1000 mg/dL (NEG); KETONE, URINE NEG (NEG); MUCUS URINE FEW /lpf (OCC); NITRITE,URINE NEG (NEG); SQUAMOUS EPITHELIAL CELL URINE <1 /hpf (0-5); URINE COLOR LIGHT-YELLOW (YELLW/STRAW)
[2016-07-27 11:04] LABS: APTT (PATIENT) 26.1 SEC (24.3-30.1); INTERNATIONAL NORMALIZED RATIO 0.9 RATIO; PROTHROMBIN TIME - PATIENT 10.4 SEC (9.8-11.6)
--- NOTE | 2016-07-27 11:25 | RADRPT ---
EXAM DATE/TIME: 07/27/2016 11:09 [place] COMPARISON: No previous studies available for comparison. INDICATIONS : Evaluate for pneumonia, pneumothorax, or communicable disease. Pre op for appendectomy. MEDICAL HISTORY : Hypertension. Asthma. SURGICAL HISTORY : None. ENCOUNTER: Initial ACUITY: 1 day PAIN SCORE: 0/10 LOCATION: Bilateral chest FINDINGS: PA and lateral views of the chest demonstrate the lungs to be symmetrically aerated without evidence of mass, infiltrate or effusion. The cardiomediastinal contours are unremarkable. Osseous structure s are intact. CONCLUSION: No acute disease. Moreno Barnhart MD on July 27, 2016 at 11:22 Board Certified Radiologist. This report was verified electronically.
[2016-07-27 11:57] LABS: ALT (GPT) 32 U/L (10-53); ANION GAP 11 MEQ/L (5-15); AST (GOT) 14 U/L (15-37); BICARBONATE 23.4 MEQ/L (21.0-32.0); BLOOD UREA NITROGEN 16 MG/DL (7-18); CHLORIDE 106 MEQ/L (98-107); GLOMERULAR FILTRATION RATE 135 ML/MIN (>89); GLUCOSE,FASTING 112 MG/DL (74-99); POTASSIUM 3.5 MEQ/L (3.5-5.1); SODIUM (NA) 140 MEQ/L (136-145)
[2016-07-27 12:00] LABS: ALKALINE PHOSPHATASE 105 U/L (45-117); TOTAL BILIRUBIN ADULT 0.5 MG/DL (0.2-1.0)
== END ==
LOC: CPRE 09:52
PROVIDERS: ATTEND Colon & Rectal Surgery
DX: Z01.811 Encounter for preprocedural respiratory examination (principal); Z01.812 Encounter for preprocedural laboratory examination; K37 Unspecified appendicitis; N82.4 Other female intestinal-genital tract fistulae
CPT/HCPCS: 36415; 71020; 80053; 81001; 85025; 85610; 85730; 86301

== ENCOUNTER 2016-09-11 16:15 | Emergency (ER) | payer OTHER ==
[~2016-09-11] VITALS: Ht 162.6 cm; Wt 90.0 kg
[~2016-09-11 16:15] MED LIST changes: -BACT800T5 PO; -CHOL5000 PO; -IMIT50TA PO; -LEVO500T3 PO; -METR-1 PO; -NORC5TAB PO; -TRAM50TA PO
[2016-09-11 16:20] VITALS: BP 133/69; PULSE 87; RESP 15; TEMP 97.8; O2SAT 96
[2016-09-11] MEDS ORDERED: BACT800T5 PO (16:44)
[2016-09-11] MEDS ORDERED: TRAM50TA PO (16:44)
--- NOTE | 2016-09-11 16:44 | PD ---
HPI . Painful lesion, right cheek Chief Complaint: Bite or Sting Time Seen by Provider: 16:37 Travel History International Travel<30 days: No Contact w/Intl Traveler<30days: No Traveled to known affect area: No History of Present Illness HPI The patient presents with a lesion on her right cheek. This been there for about 5 days and has been getting progressively worse. It is now sore. She has not run any fever. She states that she "got a little bit of blood and pus out of it" last night. The pain is throbbing and she rates it at 4/10. No modifying factor. PFSH Past Medical History Arthritis: Yes Anxiety: No Depression: No Cancer: Yes (COLON CANCER) Cardiovascular Problems: Yes (MURMER--POSSIBLE AORTIC REGURG) Diabetes: Yes Patient Takes Glucophage: No Diminished Hearing: No Endocrine: Yes Gastrointestinal Disorders: Yes (COLON CANCER 2010) Glaucoma: No Genitourinary: No Headaches: Yes Hepatitis: No Hiatal Hernia: No Hypertension: Yes Immune Disorder: No Musculoskeletal: Yes (LUMBAR DISCOMFORT) Neurologic: Yes (MIGRANE HEADACHES) Psychiatric: No Reproductive: No Respiratory: Yes (SLEEP APNEA-USES NASAL CANNULA, ASTHMA) Immunizations Current: No Migraines: Yes Thyroid Disease: No Tetanus Vaccination: > 5 Years Influenza Vaccination: Yes Menopausal: Yes Past Surgical History Abdominal Surgery: Yes (colon cancer 2017 removed here at [place]) AICD: No Body Medical Devices: NONE Cardiac Surgery: No Ear Surgery: No Endocrine Surgery: No Eye Surgery: No Genitourinary Surgery: No Gynecologic Surgery: Yes (2005 hysterectomy total) Hysterectomy: Yes Joint Replacement: No Oral Surgery: No Pacemaker: No Thoracic Surgery: Yes (3 BREAST BIOPSIES) Other Surgery: Yes (3 BREAST BX (2 ON LEFT) (ONE ON RIGHT)) Social History Alcohol Use: No Tobacco Use: No Substance Use: No Allergies-Medications (Allergen,Severity, Reaction): Coded Allergies: Metformin (Verified Allergy, Severe, Diarrhea, 09/11/16) Penicillin (Verified Allergy, Intermediate, SWELLING AND HIVES, 09/11/16) Reported Meds & Prescriptions Reported Meds & Active Scripts Active Hydrocodone-Acetaminophen 5-325 mg Tab 1 Tab PO Q6H PRN Reported Zyrtec Allergy (Cetirizine HCl) 10 Mg Cap 10 Mg PO DAILY PRN Tradjenta (Linagliptin) 5 Mg Tab 5 Mg PO DAILY Cozaar (Losartan Potassium) 50 Mg Tab 50 Mg PO HS Glipizide 10 Mg Tab 10 Mg PO DAILY Take 30 minutes before a meal Flovent Hfa 12 GM Inh (Fluticasone Propionate) 220 Mcg/Act Inh 1 Puff INH BID Use daily at the same time. Fioricet (Zvilpodeqj-Cqszvtnsegloh-Fnblemzy) 50-300-40 Mg Cap 1 Cap PO Q4H PRN Zetia (Ezetimibe) 10 Mg Tab 10 Mg PO DAILY Jardiance (Empagliflozin) 25 Mg Tab 25 Mg PO DAILY Lipitor (Atorvastatin Calcium) 40 Mg Tab 40 Mg PO HS Ventolin Hfa 18 GM Inh (Albuterol Sulfate) 90 Mcg/Act Aer 1 Puff INH Q6HR PRN Review of Systems Except as stated in HPI: all other systems reviewed are Neg General / Constitutional: No: Fever, Chills Skin: Positive Lesions Physical Exam Narrative GENERAL: Awake and alert and in no acute distress. SKIN: Induration on the right cheek. About 1 cm in diameter. There is no central fluctuance. HEAD: Atraumatic. Normocephalic. EYES: Pupils equal and round. NECK: Trachea midline. CARDIOVASCULAR: Regular rate and rhythm. RESPIRATORY: No accessory muscle use. MUSCULOSKELETAL: No obvious deformities. No edema. NEUROLOGICAL: Awake and alert. No obvious cranial nerve deficits. Motor grossly within normal limits. Normal speech. PSYCHIATRIC: Appropriate mood and affect; insight and judgment normal. Data Data Last Documented VS Vital Signs Date Time Temp Pulse Resp B/P Pulse Ox O2 Delivery O2 Flow Rate FiO2 09/11/16 16:20 97.8 87 15 133/69 96 MDM Medical Decision Making Medical Screen Exam Complete: Yes Emergency Medical Condition: Yes Differential Diagnosis My differential diagnosis includes but is not limited to localized wound infection, cellulitis, abscess Narrative Course Patient presents with a lesion on her right cheek. It looks like an early abscess. She will be placed on Bactrim and Ultram and she is to use warm compresses several times a day. She is to return for recheck in 2 days. Diagnosis Primary Impression: Abscess Patient Instructions: Abscess (ED), General Instructions Additional Instructions: Warm compresses to the areas times a day. Return for recheck in 2 days. Med/Other Pt SpecificInfo: Prescription(s) given Scripts Tramadol 50 Mg Tab50 Mg PO Q4H PRN (PAIN) #12 TAB Ref 0 Prov:Rosette Alvarez MD 09/11/16 Sulfamethoxazole-Trimethoprim (Bactrim DS)800-160 Mg Tab1 Tab PO BID #20 TAB Ref 0 Prov:Rosette Alvarez MD 09/11/16 Disposition: 01 DISCHARGE HOME Condition: Stable Rosette Alvarez MD Sep 11, 2016 16:44
== END 2016-09-11 16:53 | disposition home or self-care (01) ==
LOC: PHEFT 16:15
DX: L02.01 Cutaneous abscess of face (principal); E11.9 Type 2 diabetes mellitus without complications; I10 Essential (primary) hypertension; Z79.84 Long term (current) use of oral hypoglycemic drugs; Z87.39 Personal history of other diseases of the musculoskeletal system and connective tissue; Z86.79 Personal history of other diseases of the circulatory system; Z87.19 Personal history of other diseases of the digestive system; Z86.69 Personal history of other diseases of the nervous system and sense organs; Z87.09 Personal history of other diseases of the respiratory system; Z85.038 Personal history of other malignant neoplasm of large intestine
CPT/HCPCS: 99284

== ENCOUNTER → 2016-10-21 | Outpatient (CLI) | payer OTHER ==
[~2016-10-21] MED LIST changes: +BACT800T5 PO; -HYDR-3516 PO; +TRAM50TA PO; -ZYRT10CA PO
== END ==
LOC: CLAB 15:38
PROVIDERS: ATTEND Colon & Rectal Surgery
DX: Z85.038 Personal history of other malignant neoplasm of large intestine (principal)
CPT/HCPCS: 36415; 86301

== ENCOUNTER → 2016-12-30 | Day surgery (SDC) | payer OTHER ==
[~2016-12-30] MED LIST changes: +ACETAMINOPHEN/HYDROcodone 325 MG/5 MG TAB ONE; +BUPIVACAINE/EPINEPHRINE 0.25% 50 ML VIAL ONE; +MIDAZOLAM HCL 2 MG/2 ML VIAL ONE; +ONDANSETRON HCL 4 MG/2 ML VIAL IV PUSH ONE; +PROPOFOL 200 MG/20 ML AMP IV ONE; +SODIUM CHLOR 0.9% 250 ML BAG IV ONE; +VANCOMYCIN HCL 1000 MG VIAL ONE
--- NOTE | 2016-12-30 13:37 | TN ---
cc: MADY HERNDON M.D. DATE OF PROCEDURE 12/30/2016 PREOPERATIVE DIAGNOSES 1. Palpable mass left breast 9 o'clock position. 2. Abnormality seen on breast imaging left breast upper inner quadrant about 10 to 11 o'clock position. POSTOPERATIVE DIAGNOSES 1. Palpable mass left breast 9 o'clock position. 2. Abnormality seen on breast imaging left breast upper inner quadrant about 10 to 11 o'clock position. 3. Pending permanent section. PROCEDURE 1. Needle-localized excisional lumpectomy of abnormality at the 10-11 o'clock position seen on imaging. 2. Excision of palpable mass at the 9 o'clock position left breast. ANESTHESIA General. SURGEON Dr. Herndon. INDICATIONS FOR PROCEDURE This is a pleasant 61-year-old female who had the above abnormality, one by palpation of the 9 o'clock position and a image of the left breast that showed an abnormal density with her history of lobular carcinoma in situ. Plans were made for above. PROCEDURE The patient is taken to the operating room, placed supine on the operating room table. After anesthesia her left breast is prepped with Betadine. A time-out is done. We previously marked the palpable mass at the 9 o'clock position. Guidewires had been placed by Radiology coursing from the medial to lateral direction, slightly inferior to superior direction as well. First, after prepping and draping, we make the incision at the 9 o'clock position overlying the palpable mass; it is just underneath the subcutaneous tissue. Horizontal incision is made and the 2-cm mass is incised. It appears to have tissue consistent with probable lipoma. No other gross abnormality is palpated in this area. We then irrigated, hemostasis assured. We closed the deep layer with 4-0 Vicryl suture and skin was reapproximated with 4-0 Vicryl. We then direct our attention to the guidewire that is in the upper inner quadrant of the left breast coursing medial to lateral in a slightly inferior to superior direction. It is noted that the guidewire is not that deep into the breast tissue. We make a horizontal incision overlying the needle track paige after anesthetizing the area. We then make a circumferential dissection around the guidewire, removing the tissue just underneath the skin and a little bit extra tissue along the superior lateral area. This is sent down to pathology where Dr. El Rosales states he cannot definitively see the area in question. It is noted that we did paige this specimen superiorly with a short stitch and a long stitch placed on the medial margin. Along the lateral edge there is some thickened tissue and this is removed. I do not feel any abnormality in the superior, posterior, medial or lateral or inferior edge of the lumpectomy site. I believe the area has been excised with the two specimens that were sent down. We then irrigate the area. The deep layers are closed with 3-0 Vicryl and the skin is reapproximated with a 4-0 Vicryl. Steri-Strips applied. Sterile bandage applied. The patient tolerated the procedure. We had no immediate postop complications. Mady Herndon MD JDB/SSB /1:12 PM /1:22 PM
== END | disposition home or self-care (01) ==
LOC: ESDC 09:30
PROVIDERS: ATTEND Surgery
DX: N63.0 Unspecified lump in unspecified breast (principal); R92.8 Other abnormal and inconclusive findings on diagnostic imaging of breast; Z85.3 Personal history of malignant neoplasm of breast
CPT/HCPCS: 00400; 19120; 19125; 88304; 88307; J2250; J2405; J3010; J3370; J7050

== ENCOUNTER → 2017-06-17 | Outpatient (CLI) | payer OTHER ==
[~2017-06-17] MED LIST changes: -ACETAMINOPHEN/HYDROcodone 325 MG/5 MG TAB ONE; -BUPIVACAINE/EPINEPHRINE 0.25% 50 ML VIAL ONE; +EZET10 PO; -MIDAZOLAM HCL 2 MG/2 ML VIAL ONE; -ONDANSETRON HCL 4 MG/2 ML VIAL IV PUSH ONE; -PROPOFOL 200 MG/20 ML AMP IV ONE; -SODIUM CHLOR 0.9% 250 ML BAG IV ONE; -VANCOMYCIN HCL 1000 MG VIAL ONE; -ZETI10TA5 PO
[2017-06-17 10:44] LABS: AUTOMATED NEUTROPHIL # 3.9 TH/MM3 (1.8-7.7); BASOPHIL % 0.5 % (0.0-2.0); EOSINOPHIL # 0.1 TH/MM3 (0-0.4); EOSINOPHIL % 2.1 % (0.0-4.0); HEMATOCRIT 40.5 % (35.0-46.0); LYMPH % 31.3 % (9.0-44.0); MEAN CORPUSCULAR HGB CONC 34.5 % (32.0-36.0); MEAN PLATELET VOLUME 8.1 FL (7.0-11.0); MONO % 5.2 % (0.0-8.0); MONOCYTE # 0.3 TH/MM3 (0-0.9); NEUT % 60.9 % (16.0-70.0); PLATELET COUNT 265 TH/MM3 (150-450); RED BLOOD COUNT 4.82 MIL/MM3 (4.00-5.30); WHITE BLOOD COUNT 6.4 TH/MM3 (4.0-11.0)
[2017-06-17 11:00] LABS: ALBUMIN 3.7 GM/DL (3.4-5.0); BICARBONATE 22.8 MEQ/L (21.0-32.0); BLOOD UREA NITROGEN 10 MG/DL (7-18); CALCIUM 8.7 MG/DL (8.5-10.1); CHLORIDE 108 MEQ/L (98-107); GLUCOSE,FASTING 201 MG/DL (74-99); SODIUM (NA) 140 MEQ/L (136-145)
[2017-06-17 11:09] LABS: ALKALINE PHOSPHATASE 99 U/L (45-117); ALT (GPT) 23 U/L (10-53); AST (GOT) 11 U/L (15-37); CHOLESTEROL 316 MG/DL (120-200); CHOLESTEROL/ HDL RATIO 7.31 RATIO; CREATININE 0.52 MG/DL (0.50-1.00); GLOMERULAR FILTRATION RATE 119 ML/MIN (>89); HDL CHOLESTEROL 43.2 MG/DL (40.0-60.0); LDL CHOLESTEROL 197 MG/DL (0-99); TOTAL BILIRUBIN ADULT 0.4 MG/DL (0.2-1.0); TOTAL PROTEIN 7.1 GM/DL (6.4-8.2); TRIGLYCERIDES 380 MG/DL (42-150)
== END ==
LOC: PLAB 07:26
PROVIDERS: ATTEND Family Medicine
DX: E78.2 Mixed hyperlipidemia (principal); E11.65 Type 2 diabetes mellitus with hyperglycemia
CPT/HCPCS: 36415; 80053; 80061; 85025